=== PATIENT | female | born 1945 | race Caucasian/White ===

== ENCOUNTER 2019-12-05 08:42 | Outpatient (CLI) | payer MEDICARE, SELFPAY ==
--- NOTE | 2019-12-05 08:57 | CT_ITS ---
WS: [id number] CT CHEST WITH INTRAVENOUS CONTRAST HISTORY: NODULE OF LOWER LOBE OF RIGHT LUNG TECHNIQUE: Contiguous 5 mm axial imaging performed on the thorax. Coronal and sagittal reformats are submitted. All CT scans at [facility] use at least one of these dose optimization techniq ues: automated exposure control; mA and/or kV adjustment per patient size (includes targeted exams wh ere dose is matched to clinical indication); or iterative reconstruction. CONTRAST: Omnipaque 300; 95 mL IV. DLP: 796.82 mGycm COMPARISON: 05/31/2019 Lungs and central airway: No interval change in the multiple, noncalcified and subcentimeter nodules in the lower lung jerez. 7 mm nodule in the RIGHT middle lobe. Largest nodule in the RIGHT lower lob e is 7 mm also. 4 mm nodule LEFT lower lobe. These nodules remain stable with no increase in size. No pneumonia. Pleura: Normal. No pleural effusion. Heart and pericardium: Slight enlargement of the heart chambers. No pericardial effusion. Mediastinum and gael: Numerous mediastinal and hilar lymph nodes. Majority of the lymph nodes are sub centimeter and have normal fatty gael. Largest lymph node measures 11 mm at the RIGHT hilum. No progr ession in number or size of the lymph nodes. Vessels: Moderate enlargement the pulmonary artery measuring 3.2 cm transverse diameter of the trunk. Very mild atherosclerosis aorta. Mild atherosclerosis coronary arteries. Chest wall and lower neck: No soft tissue masses. Upper abdomen: Negative. Osseous structures: Mild increase in thoracic kyphosis. Moderate degenerative disc space narrowing an d desiccation at T7-8. No fractures. No destructive bone lesions. CT/CT chest w con* [id number] IMPRESSION: 1. Bilateral RIGHT middle and lower lobe subcentimeter pulmonary nodules are r eidentified with no progression since 05/31/2019. Recommend [address] fo llow-up document continued stability. 2. Mild cardiomegaly. 3. Pulmonary hypertension. 4. Mild atherosclerosis aorta and [place] coronary arteries. 5. Stable mediastinal and hilar lymph nodes.
[2019-12-05 09:21] LABS: Blood Urea Nitrogen 16 mg/dL (8-23)
[2019-12-05] MEDS: iohexol 300 mg/mL 100 mL Btl IV (09:28)
== END 2019-12-05 08:43 | disposition home or self-care (01) ==
PROVIDERS: Radiology Diagnostic Radiology; Family Provider Family Medicine; PCP Family Medicine; Visit Provider Family Medicine
DX: R91.1 Solitary pulmonary nodule (principal); I51.7 Cardiomegaly; I27.20 Pulmonary hypertension, unspecified; I25.10 Atherosclerotic heart disease of native coronary artery without angina pectoris; I70.0 Atherosclerosis of aorta
CPT/HCPCS: 71260; 82565; 84520; Q9967

== ENCOUNTER 2021-04-28 10:47 | Outpatient (CLI) | payer BC, SELFPAY ==
--- NOTE | 2021-04-28 10:56 | XR_ITS ---
WS: [id number] SCREENING DEXA SCAN [employer] CLINICAL INFORMATION: POST MENOPAUSAL COMPARISON: None. FINDINGS: The L1-L4 bone mineral density measures 0.976 g/cm2. This corresponds to a T score score of -1.7 and Z score of -0.3. Left femoral neck bone mineral density measures 1.016 g/cm2. This corresponds to a T score of 0.1 and Z score of 1.6. Right femoral neck bone mineral density measures 1.002 g/cm2. This corresponds to a T score 0.0of and Z score of 1.5. Mean femoral neck bone mineral density measures 1.009 g/cm2. This corresponds to a T score of 0.0 and Z score of 1.6. XR/XR DEXA axial skeleton* [id number] IMPRESSION: Osteopenia lumbar spine. Normal bone mineralization femoral necks. Patient's FRAX calculated 10 year probability for major osteoporotic fracture i s 19.4 % and osteoporotic hip fracture is 4.5%.
== END 2021-04-28 10:48 | disposition home or self-care (01) ==
PROVIDERS: PCP Family Medicine; Visit Provider Physician Assistant
DX: Z78.0 Asymptomatic menopausal state (principal); M85.88 Other specified disorders of bone density and structure, other site
CPT/HCPCS: 77080

== ENCOUNTER → 2022-06-06 10:33 | Outpatient (BNVA) | payer BC, SELFPAY | PROVIDERS: PCP Family Medicine; Referring Provider Family Medicine; Visit Provider Student in an Organized Health Care Education/Training Program | DX: M12.811 Other specific arthropathies, not elsewhere classified, right shoulder (principal) | CPT/HCPCS: 73030 ==

== ENCOUNTER 2022-06-15 06:00 | Outpatient (RCR) | payer BC, SELFPAY | END 2022-06-29 23:59 | disposition home or self-care (01) | LOC: SPT 06:00 | PROVIDERS: PCP Family Medicine; Visit Provider Student in an Organized Health Care Education/Training Program | DX: M25.511 Pain in right shoulder (principal); M12.811 Other specific arthropathies, not elsewhere classified, right shoulder | CPT/HCPCS: 97110; 97161 ==

== ENCOUNTER 2022-06-30 06:00 | Outpatient (RCR) | payer BC, SELFPAY | END 2022-07-30 23:59 | disposition home or self-care (01) | LOC: SPT 06:00 | PROVIDERS: PCP Family Medicine; Visit Provider Student in an Organized Health Care Education/Training Program | DX: M25.511 Pain in right shoulder (principal) | CPT/HCPCS: 97110 ==

== ENCOUNTER 2023-07-09 14:43 | Emergency (ER) | payer MEDICARE, SELFPAY ==
[2023-07-09 14:51] VITALS: BP 155/73; PULSE 68; RESP 16; TEMP 36.4; O2SAT 95; BMI 30.9
[2023-07-09 15:11] VITALS: BP 172/79; PULSE 66; RESP 14; O2SAT 96
--- NOTE | 2023-07-09 15:18 | CTR_ITS ---
PROCEDURE INFORMATION: Exam: CT Head Without Contrast Exam date and time: 07/09/2023 4:10 PM Age: 77 years old Clinical indication: Weakness, extremity; Bilateral; Additional info: Syncope TECHNIQUE: Imaging protocol: Computed tomography of the head without contrast. Sagittal and coronal reformatted images were created and reviewed. Radiation optimization: All CT scans at this facility use at least one of these dose optimization techniques: automated exposure control; mA and/or kV adjustment per patient size (includes targeted exams where dose is matched to clinical indication); or iterative reconstruction. REPORTING DATA: Count of CT and Cardiac NM exams in prior 12 months: This patient has received 0 known CTs and 0 known cardiac nuclear medicine studies in the 12 months prior to the current study. COMPARISON: No relevant prior studies available. RADIATION DOSE METRICS: Total DLP (mGy-cm): 1030.78 FINDINGS: Brain: No acute intracranial hemorrhage. No acute infarct. No intra-axial or extra-axial masses. Horn-white matter differentiation is preserved. No cerebral edema. No extra-axial fluid collections. No midline shift. No evidence for Chiari 1 malformation. Mild atrophy of the brain parenchyma. Mildly decreased attenuation in the deep white matter, consistent with mild chronic microangiopathic change. Cerebral ventricles: No hydrocephalus. Paranasal sinuses: Visualized paranasal sinuses are clear. Mastoid air cells: Visualized mastoid air cells are clear. Orbital cavities: No acute abnormality in the visualized orbits. Bones/joints: No acute fracture. Soft tissues: The extracranial soft tissues are unremarkable. Vasculature: Atherosclerotic changes in the visualized arteries. CT/CT head wo con* [id number] IMPRESSION: 1. No acute abnormality of the brain. 2. Mild atrophy of the brain parenchyma. 3. Mild chronic white matter microangiopathic change. 4. Incidental/nonacute findings are listed in the report.
[2023-07-09 15:30] VITALS: BP 135/72; PULSE 60; RESP 16; O2SAT 95
[2023-07-09 16:00] VITALS: BP 152/81; PULSE 60; RESP 16; O2SAT 94
[2023-07-09 16:00] LABS: Add Urine Microscopic? NO; Charge for UA Resulting for Rev
[2023-07-09 16:08] LABS: Basophils % 0.3 %; Eosinophils # 0.1 10^3/uL (0.0-0.8); Hematocrit 38.5 % (36-47); Lymphocytes # 1.6 10^3/uL (0.8-4.8); Lymphocytes % 25.6 %; Mean Corpuscular HGB Conc 33.5 g/dL (30-55); Mean Corpuscular Hemoglobin 31.5 pg (27-33); Mean Corpuscular Volume 93.9 fl (85-98); Mean Platelet Volume 10.1 fL (7.4-10.4); Monocytes # 0.7 10^3/uL (0.2-0.9); Monocytes % 10.8 %; Neutrophils # 3.81 10^3/uL (1.8-7.7); Neutrophils % 62.1 %; Nucleated Red Blood Cells % 0 %; Platelet Count 224 10^3/cmm (157-399); White Blood Count 6.13 10^3/uL (3.29-11.43)
[2023-07-09 16:17] LABS: Bilirubin Urine Neg (Negative); Blood Urine Neg (Negative); Glucose Urine UA Norm (Normal); Ketones Urine Negative (Negative); Leukocyte Esterase Urine Negative (Negative); Nitrate Urine Negative (Negative); Protein Urine Neg (Negative); Urine Appearance Clear (CLEAR); Urine Color Yellow (Yellow); Urobilinogen Urine Norm (Negative); pH Urine 6 (5-7)
[2023-07-09 16:25] LABS: Alanine Aminotransferase 11 U/L (0-33); Albumin Level 4.2 g/dL (3.5-5.2); Alkaline Phosphatase 55 U/L (35-105); Anion Gap 14.5 (5-19); Aspartate Amino Transferase 12 U/L (0-32); Blood Urea Nitrogen 18 mg/dL (8-23); Calcium 9.2 mg/dL (8.5-10.5); Carbon Dioxide 28 mmol/L (22-29); Chloride 102 mmol/L (98-107); Globulin 2.8 g/dL (1.3-4.6); Glucose 168 mg/dL (65-115); Magnesium 1.8 mg/dL (1.7-2.3); Osmolality Calculated 298 mOsm/kg (285-295); Potassium 3.5 mmol/L (3.5-5.1); Sodium 141 mmol/L (136-145); Total Bilirubin 0.2 mg/dL (0.15-1.2)
--- NOTE | 2023-07-09 16:46 | ED_ITS ---
HPI - Weakness 2 General: Chief complaint: Weakness Stated complaint: weakness Time Seen by Provider: 07/09/23 15:08 History of Present Illness: 77-year-old female presents emergency de partment with complaints of having a near episode of passing out. She states that it occurred earlier today while she was eating lunch. She states she felt like her arms went limp and that she stayed that way for several minutes and was unable to stand up. She states that after 2 to 3 minutes she returned back to normal was able to ambulate and walk. She states that she had an episode like this yesterday morning at breakfast where she had to yell for her to come stabilize her she states that she felt like her muscles were twitching and jerking and having muscle spasms in her legs at that time. She states she has never had anything like this in the past. She states she is generally healthy and has never had any seizure type activities. She states that she was able to remember the entire incident and that she was able to talk to her while it was occurring. She states that she has not seen her primary care provider for this as the first time it ever happened was yesterday. Review of Systems 2 General: Reports: 10 or more systems reviewed and unremarkable except in HPI and below Card: Reports: pre-syncope Musc: Reports: muscle weakness [facility] ED 2 PFSH: Medical History Rotator cuff arthropathy of right shoulder Physical Exam 2 Narrative: EXAM NARRATIVE: Constitutional: the patient appears well nourished and with normal development. Vital signs reviewed as documented. HENMT: Normocephalic, atraumatic. External ears with normal appearance without drainage. Nose without drainage, normal appearance. Mucus membranes moist. Neck is supple, No jugular venous distension, trachea is midline, no appreciable carotid bruits. No lymphadenopathy. No meningeal signs. Flexion, extension and lateral rotation is without pain. Eyes: Pupils are equal, round, reactive to light and accommodation. No scleral icterus. Extra-ocular movement are intact. Thorax is symmetrical and with equal rise and fall with respirations. Resp: Lungs are clear to auscultation. No wheezes, rales, crackles or ronchi at present. Cardio: Regular rate and rhythm. Positive S1, S2. No appreciable murmurs, rubs or gallops. GI: Abdominal exam reveals normal bowel sounds to all quadrants. No organomegaly. No obvious palpable masses noted. No hepatomegally appreciated. Soft, nontender to palpation. Extremity: Extremities are non-edematous and both femoral and pedal pulses are 2+ and equal bilaterally. Moves all extremities well, sensation in all extremities. Neuro: Alert and oriented x4, person, place, time and situation. Cranial nerves II through XII are grossly intact, there is no focal neurological deficits that I can appreciate at present. Motor strength in the upper and lower extremities are equal and bilateral 5/5. Psych: Cooperative, calm, normal thought process, appropriate judgment. Skin: No lesions, rashes. No gross abnormalities noted. Back: Symmetrical, no obvious deformity, No CVA tenderness Course 2 Vital Signs: Vital signs: Vital Signs Temperature 97.5 F L 07/09/23 14:51 Pulse Rate 61 07/09/23 17:00 Respiratory Rate 18 07/09/23 17:00 Blood Pressure 149/77 07/09/23 17:00 Pulse Oximetry 95 07/09/23 17:00 Oxygen Delivery Me thod Room Air 07/09/23 14:51 MDM - Weakness Medical Decision Making Physical exam completed and documented, I will obtain a CT scan of the patient's head as well as CBC and CMP to evaluate for her concerns of near syncope. The patient has returned to complete normalcy and does not feel like she is dizzy or lightheaded or having any sort of muscle spasms at present. Medical Records I reviewed the patient's medical records. Lab Data I reviewed the patient's lab results. 07/09/23 15:47 07/09/23 15:[address] 07/09/23 15:18 IMPRESSION: 1. No acute abnormality of the brain. 2. Mild atrophy of the brain parenchyma. 3. Mild chronic white matter microangiopathic change. 4. Incidental/nonacute findings are listed in the report. Laboratory Results WBC 6.13 10^3/uL (3.29-11.43) 07/09/23 15:47 RBC 4.10 10^6/uL (3.85-5.65) 07/09/23 15:47 Hgb 12.90 g/dL (11.27-16.99) 07/09/23 15:47 Hct 38.5 % (36-47) 07/09/23 15:47 MCV 93.9 fl (85-98) 07/09/23 15:47 MCH 31.5 pg (27-33) 07/09/23 15:47 MCHC 33.5 g/dL (30-55) 07/09/23 15:47 RDW 12.0 % (12.1-15.1) L 07/09/23 15:47 Plt Count 224 10^3/cmm (157-399) 07/09/23 15:47 MPV 10.1 fL (7.4-10.4) 07/09/23 15:47 Neut % (Auto) 62.1 % 07/09/23 15:47 Lymph % (Auto) 25.6 % 07/09/23 15:47 [place] % (Auto) 10.8 % 07/09/23 15:47 Eos % (Auto) 1.0 % 07/09/23 15:47 Baso % (Auto) 0.3 % 07/09/23 15:47 Neut # (Auto) 3.81 10^3/uL (1.8-7.7) 07/09/23 15:47 Lymph # (Auto) 1.6 10^3/uL (0.8-4.8) 07/09/23 15:47 [place] # (Auto) 0.7 10^3/uL (0.2-0.9) 07/09/23 15:47 Eos # (Auto) 0.1 10^3/uL (0.0-0.8) 07/09/23 15:47 Baso # (Auto) 0.0 10^3/uL (0.0-0.1) 07/09/23 15:47 Nucleated RBC % (auto) 0 % 07/09/23 15:47 Nucleated RBCs # 0.0 /100WBC 07/09/23 15:47 Sodium 141 mmol/L (136-145) 07/09/23 15:47 Potassium 3.5 mmol/L (3.5-5.1) 07/09/23 15:47 Chloride 102 mmol/L (98-107) 07/09/23 15:47 Carbon Dioxide 28 mmol/L (22-29) 07/09/23 15:47 Anion Gap 14.5 (5-19) 07/09/23 15:47 BUN 18 mg/dL (8-23) 07/09/23 15:47 Creatinine 0.7 mg/dL (0.5-0.9) 07/09/23 15:47 GFR Calculation Not Reportable 07/09/23 15:47 Glucose 168 mg/dL (65-115) H 07/09/23 15:47 Calculated Osmolality 298 mOsm/kg (285-295) H 07/09/23 15:47 Calcium 9.2 mg/dL (8.5-10.5) 07/09/23 15:47 Magnesium 1.8 mg/dL (1.7-2.3) 07/09/23 15:47 Total Bilirubin 0.2 mg/dL (0.15-1.2) 07/09/23 15:47 AST 12 U/L (0-32) 07/09/23 15:47 ALT 11 U/L (0-33) 07/09/23 15:47 Alkaline Phosphatase 55 U/L (35-105) 07/09/23 15:47 Total Protein 7.0 g/dL (6.6-8.7) 07/09/23 15:47 Albumin 4.2 g/dL (3.5-5.2) 07/09/23 15:47 Globulin 2.8 g/dL (1.3-4.6) 07/09/23 15:47 Urine Color Yellow (Yellow) 07/09/23 15:47 Urine Appearance Clear (CLEAR) 07/09/23 15:47 Urine pH 6 (5-7) 07/09/23 15:47 Ur Specific [place] 1.010 (1.005-1.030) 07/09/23 15:47 Urine Protein Neg (Negative) 07/09/23 15:47 Urine Glucose (UA) Norm (Normal) 07/09/23 15:47 Urine Ketones Negative (Negative) 07/09/23 15:47 Urine Blood Neg (Negative) 07/09/23 15:47 Urine Nitrate Negative (Negative) 07/09/23 15:47 Urine Bilirubin Neg (Negative) 07/09/23 15:47 Urine Urobilinogen Norm mg/dL (Negative) 07/09/23 15:47 Ur Leukocyte Esterase Negative (Negative) 07/09/23 15:47 All radiology interpretation(s) finalized by discharge Discharge Plan Discharge Patient Disposition: Home Clinical Impression: Near syncope Condition: Stable Prescriptions: No Action amlodipine 10 mg tablet 10 mg PO DAILY levothyroxine 75 mcg capsule 75 mcg PO DAILY montelukast 10 mg tablet 10 mg PO DAILY hydrochlorothiazide 25 mg tablet 25 mg PO DAILY simvastatin 80 mg tablet 80 mg PO DAILY irbesartan 150 mg tablet 150 mg PO DAILY metformin 500 mg tablet extended release 24 hr 50 mg PO BID Discharge Orders: Discharge ED (Routine); Ordered 07/09/23 Ordered By: Tyshawn Hinton Referrals: Luca Sanon MD [Primary Care Provider] - Discharge Diet: Advance as tolerated Discharge Activity: Resume usual activity Patient Instructions: Opioid Safety, Pain Management Activity Restrictions/Additional Instructions: Activity Restrictions/Additional Instructions: Thank you for choosing [facility] for your healthcare needs today. Please realize that you were seen in the Emergency Department and that we are providing you with an emergency medical screening exam and this may not be a complete and all inclusive of all the testing and or medical work-up that you may need to determine your ailment or severity of your illness. It is very important that you follow-up as instructed with your Primary care provider or Specialist for additional evaluation and to discuss your medical treatment plan. You may return to the Emergency Department should you have concerns or if your condition changes or worsens in any way. Coding Level of Care Code ED Information Technology Coordinator for Gianni Jj
[2023-07-09 17:00] VITALS: BP 149/77; PULSE 61; RESP 18; O2SAT 95
== END 2023-07-09 18:09 | disposition home or self-care (01) ==
PROVIDERS: Emergency Provider Internal Medicine; PCP Family Medicine
DX: R55 Syncope and collapse (principal)
CPT/HCPCS: 70450; 80053; 81003; 83735; 85025; 99284

== ENCOUNTER 2023-07-16 11:30 | Observation (INO) | payer MEDICARE, SELFPAY ==
[2023-07-16] VITALS (12 sets, daily range): BP systolic 119–164; BP diastolic 2–94; PULSE 60–67; RESP 13–20; TEMP 36.5–36.7; O2SAT 90–97; BMI 28.7
--- NOTE | 2023-07-16 11:40 | XRR_ITS ---
PROCEDURE INFORMATION: Exam: XR Chest Exam date and time: 07/16/2023 12:02 PM Age: 77 years old Clinical indication: Other: Dizzy TECHNIQUE: Imaging protocol: Radiologic exam of the chest. Views: 1 view. COMPARISON: CT chest w con* [id number] 12/05/2019 9:25 AM FINDINGS: Lungs: Unremarkable. No consolidation. Pleural spaces: Unremarkable. No pleural effusion. No pneumothorax. Heart/Mediastinum: Unremarkable. No cardiomegaly. Bones/joints: Unremarkable. XR/XR chest 1V portable [id number] IMPRESSION: No acute findings.
--- NOTE | 2023-07-16 11:40 | CTR_ITS ---
PROCEDURE INFORMATION: Exam: CT Head Without Contrast Exam date and time: 07/16/2023 12:11 PM Age: 77 years old Clinical indication: Dizziness; Additional info: Dizzy TECHNIQUE: Imaging protocol: Computed tomography of the head without contrast. Radiation optimization: All CT scans at this facility use at least one of these dose optimization techniques: automated exposure control; mA and/or kV adjustment per patient size (includes targeted exams where dose is matched to clinical indication); or iterative reconstruction. REPORTING DATA: Count of CT and Cardiac NM exams in prior 12 months: This patient has received [address] and 0 known cardiac nuclear medicine studies in the 12 months prior to the current study. COMPARISON: CT head wo con* [id number] 07/09/2023 4:10 PM RADIATION DOSE METRICS: Total DLP (mGy-cm): 1001.68 FINDINGS: Brain: Mild parenchymal volume loss. Vague rounded hypodensity anterior superior left cerebellar hemisphere (series 4, image 13) measuring 7 mm is seen. There is surrounding hypodensity that is ill-defined. The appearance has developed since brain CT from 07/09/2023. There is no acute infarct, hemorrhage or extra-axial fluid collection. Cerebral ventricles: No ventriculomegaly. Paranasal sinuses: Visualized sinuses are unremarkable. No fluid levels. Mastoid air cells: Visualized mastoid air cells are well aerated. Bones/joints: Unremarkable. No acute fracture. Soft tissues: Unremarkable. CT/CT head wo con* [id number] IMPRESSION: There is a new finding of defined 7 mm rounded hypodensity anterior superior left cerebellar hemisphere with surrounding hypodensity but is ill-defined. Differential considerations include a developing infectious process, atypical appearance of ischemic lesion. Neoplasm is felt to be unlikely given the exchange consultant a 7 day period. Would recommend further evaluation with MRI pre and postcontrast.
--- NOTE | 2023-07-16 11:45 | ED_ITS ---
HPI - Dizziness 2 General: Chief Complaint: Dizziness Stated Complaint: dizzy Time Seen by Provider: 07/16/23 11:33 Source: patient and EMS Mode of arrival: EMS Limitations: no limitations History of Present Illness: HPI Narrative: 77-year-old female states she has had di zziness over the last week. States it is mainly with standing and movement at rest that improved she was seen here a week ago had normal workup including normal head CT states that her symptoms have continued denies any headache denies any chest pain. Associated symptoms: Denies chest pain, chills, headache(s), nausea or vomiting Review of Systems 2 Const: Denies: fever(s), chills, body aches or change in appetite ENMT: Denies: throat pain or dental pain Card: Denies: chest pain Resp: Denies: dyspnea GI: Denies: abdominal pain, nausea, vomiting or diarrhea Musc: Denies: neck pain or back pain Skin/Breast: Denies: rash Neuro: Reports: dizziness; Denies: headache(s) PFSH ED 2 PFSH: Medical History Rotator cuff arthropathy of right shoulder Physical Exam 2 Const: COMMON NORMALS: no acute distress, patient oriented x3 and healthy appearing HENMT: COMMON NORMALS: normocephalic and atraumatic HEAD & SCALP: n ormocephalic and atraumatic Neck/C-Spine: COMMON NORMALS: full ROM and supple Chest: COMMONS NORMALS: normal inspection of the chest and normal palpation of entire chest wall Resp: COMMON NORMALS: normal respiratory effort, No retractions, No use of accessory muscles and clear to auscultation bilaterally AUSCULTATION: clear to auscultation bilaterally Cardio: COMMON NORMALS: regular rate, regular rhythm and No murmurs present (Cardio) RATE: regular rate RHYTHM: regular rhythm Extremity: COMMON NORMALS: normal to inspection and full ROM Neuro: COMMON NORMALS: patient oriented x3, moves all extremities and no focal motor deficits CRANIAL NERVES: Yes CN normal except as noted MOTOR EXAM: 5 /5 motor strength present throughout Psych: COMMON NORMALS: mental status grossly normal, Normal thought process present and cooperative THOUGHT PROCESS: Normal thought process present Skin: COMMON NORMALS: no rashes or lesions noted and no wounds GENERAL SKIN EXAM: no rashes or lesions noted Course 2 Vital Signs: Vital signs: Vital Signs Temperature 97.7 F 07/16/23 11:32 Pulse Rate 62 07/16/23 12:34 Respiratory Rate 20 H 07/16/23 12:18 Blood Pressure 119/2 07/16/23 12:34 Pulse Oximetry 94 07/16/23 12:34 Oxygen Delivery Me thod Room Air 07/16/23 12:34 MDM - Dizziness Medical Decision Making Patient presents here with dizziness CT shows a area of possible posterior stroke. Patient given aspirin here I spoke to the hospitalist will admit for an MRI Medical Records I reviewed the patient's medical records. Lab Data I reviewed the patient's lab results. 07/16/23 11:57 07/16/23 11:57 Radiology Impressions Chest X-Ray 07/16/23 11:40 IMPRESSION: No acute findings. Head CT 07/16/23 11:40 IMPRESSION: There is a new finding of defined 7 mm rounded hypodensity anterior superior left cerebellar hemisphere with surrounding hypodensity but is ill-defined. Differential considerations include a developing infectious process, atypical appearance of ischemic lesion. Neoplasm is felt to be unlikely given the car changer a 7 day period. Would recommend further evaluation with MRI pre and postcontrast. Laboratory Results WBC 6.62 10^3/uL (3.29-11.43) 07/16/23 11:57 RBC 4.56 10^6/uL (3.85-5.65) 07/16/23 11:57 Hgb 14.10 g/dL (11.27-16.99) 07/16/23 11:57 Hct 41.7 % (36-47) 07/16/23 11:57 MCV 91.4 fl (85-98) 07/16/23 11:57 MCH 30.9 pg (27-33) 07/16/23 11:57 MCHC 33.8 g/dL (30-55) 07/16/23 11:57 RDW 11.8 % (12.1-15.1) L 07/16/23 11:57 Plt Count 231 10^3/cmm (157-399) 07/16/23 11:57 MPV 10.3 fL (7.4-10.4) 07/16/23 11:57 Neut % (Auto) 62.5 % 07/16/23 11:57 Lymph % (Auto) 25.7 % 07/16/23 11:57 [place] % (Auto) 9.8 % 07/16/23 11:57 Eos % (Auto) 1.2 % 07/16/23 11:57 Baso % (Auto) 0.5 % 07/16/23 11:57 Neut # (Auto) 4.14 10^3/uL (1.8-7.7) 07/16/23 11:57 Lymph # (Auto) 1.7 10^3/uL (0.8-4.8) 07/16/23 11:57 [place] # (Auto) 0.7 10^3/uL (0.2-0.9) 07/16/23 11:57 Eos # (Auto) 0.1 10^3/uL (0.0-0.8) 07/16/23 11:57 Baso # (Auto) 0.0 10^3/uL (0.0-0.1) 07/16/23 11:57 Nucleated RBC % (auto) 0 % 07/16/23 11:57 Nucleated RBCs # 0.0 /100WBC 07/16/23 11:57 Sodium 140 mmol/L (136-145) 07/16/23 11:57 Potassium 3.5 mmol/L (3.5-5.1) 07/16/23 11:57 Chloride 100 mmol/L (98-107) 07/16/23 11:57 Carbon Dioxide 31 mmol/L (22-29) H 07/16/23 11:57 Anion Gap 12.5 (5-19) 07/16/23 11:57 BUN 15 mg/dL (8-23) 07/16/23 11:57 Creatinine 0.6 mg/dL (0.5-0.9) 07/16/23 11:57 GFR Calculation Not Reportable 07/16/23 11:57 Glucose 170 mg/dL (65-115) H 07/16/23 11:57 Calculated Osmolality 295 mOsm/kg (285-295) 07/16/23 11:57 Calcium 9.8 mg/dL (8.5-10.5) 07/16/23 11:57 Total Bilirubin 0.2 mg/dL (0.15-1.2) 07/16/23 11:57 AST 15 U/L (0-32) 07/16/23 11:57 ALT 13 U/L (0-33) 07/16/23 11:57 Alkaline Phosphatase 59 U/L (35-105) 07/16/23 11:57 Total Protein 7.2 g/dL (6.6-8.7) 07/16/23 11:57 Albumin 4.6 g/dL (3.5-5.2) 07/16/23 11:57 Globulin 2.6 g/dL (1.3-4.6) 07/16/23 11:57 TSH 4.79 uIU/mL (0.27-4.20) H 07/16/23 11:57 All radiology interpretation(s) finalized by discharge EKG Data EKG 1: I personally reviewed and interpreted this EKG as follows: EKG interpretation date: 07/16/23 EKG interpretation time: 12:08 Interpretation: sinus toby hr [address] or t wave abnormalities qrs 97 qtc 388 Discharge Plan Discharge Patient Disposition: Admitted As Inpatient Clinical Impression: Posterior circulation stroke Condition: Stable Coding Level of Care Code ED Custodial Supervisor for Gianni Jj
[2023-07-16 12:08] LABS: Basophils % 0.5 %; Eosinophils # 0.1 10^3/uL (0.0-0.8); Eosinophils % 1.2 %; Hematocrit 41.7 % (36-47); Lymphocytes # 1.7 10^3/uL (0.8-4.8); Lymphocytes % 25.7 %; Mean Corpuscular HGB Conc 33.8 g/dL (30-55); Mean Corpuscular Hemoglobin 30.9 pg (27-33); Mean Corpuscular Volume 91.4 fl (85-98); Mean Platelet Volume 10.3 fL (7.4-10.4); Monocytes # 0.7 10^3/uL (0.2-0.9); Monocytes % 9.8 %; Neutrophils # 4.14 10^3/uL (1.8-7.7); Neutrophils % 62.5 %; Nucleated Red Blood Cells % 0 %; Platelet Count 231 10^3/cmm (157-399); Red Blood Count 4.56 10^6/uL (3.85-5.65); Red Cell Distribution Width 11.8 % (12.1-15.1); White Blood Count 6.62 10^3/uL (3.29-11.43)
--- NOTE | 2023-07-16 12:08 | ECG_ITS ---
[facility] Test Date: 2023-07-16 Pat Name: Francy Mcmullen Department: Room: Gender: Female Hammer Smith: : 1945 Requested By: Jesse Rainey Order Number: [id number] Brayan MD: Kirby Moreno M.D. Measurements Intervals [place] Rate: 56 P: 69 MT: 216 QRS: 35 QRSD: 97 T: 44 QT: 397 QTc: 385 Interpretive Statements SINUS BRADYCARDIA WITH FIRST DEGREE AV BLOCK No previous ECG available for comparison Electronically Signed On 07-16-2023 19:45:20 CABINETMAKER APPRENTICE by Kirby Moreno M.D. [email or web address]
[2023-07-16 12:27] LABS: Alanine Aminotransferase 13 U/L (0-33); Albumin Level 4.6 g/dL (3.5-5.2); Alkaline Phosphatase 59 U/L (35-105); Aspartate Amino Transferase 15 U/L (0-32); Blood Urea Nitrogen 15 mg/dL (8-23); Calcium 9.8 mg/dL (8.5-10.5); Carbon Dioxide 31 mmol/L (22-29); Chloride 100 mmol/L (98-107); Globulin 2.6 g/dL (1.3-4.6); Glucose 170 mg/dL (65-115); Osmolality Calculated 295 mOsm/kg (285-295); Sodium 140 mmol/L (136-145); Thyroid Stimulating Hormone 4.79 uIU/mL (0.27-4.20); Total Bilirubin 0.2 mg/dL (0.15-1.2); Total Protein 7.2 g/dL (6.6-8.7)
[2023-07-16 12:31] LABS: Anion Gap 12.5 (5-19); Potassium 3.5 mmol/L (3.5-5.1)
[2023-07-16] MEDS: meclizine 25 mg tablet PO (12:57)
[2023-07-16] MEDS: aspirin 81 mg Chew Tablet 324 MG PO (12:57)
--- NOTE | 2023-07-16 16:52 | USCV_ITS ---
Francy Mcmullen Age: 77 Gender: F : 1945 Exam Date: 07/16/2023 18:36 Ordering Phys: Stella Patel MD Technologist: Shaw Silva [place]am Location[place] [facility] [place]ication: stroke BP: 149 / 78 HR: 59 Rhythm: Sinus Technical Quality: Adequate MEASUREMENTS (Male / Female) Normal Values 2D ECHO LVOT Diameter 2.0 cm LV Ejection Fraction MOD 2C 65.5 % LV Ejection Fraction 2C AL 65.0 % LA Diameter 3.6 cm LA Width 3.8 cm LA Height 4.7 cm RA Width 3.6 cm RA Height 3.9 cm Aorta at Sinotubular Diameter 2.1 cm IVC Diameter 1.7 cm M-MODE Aortic Annulus Diameter 2.8 cm LA Ao Ratio MM 1.4 MV E Point Septal Separation 0.5 cm DOPPLER AV Peak Velocity 204.3 cm/s LVOT Peak Velocity 115.0 cm/s AV Area Cont Eq vti 2.0 cm squared AV Area Cont Eq pk 1.8 cm squared MV Peak Velocity 139.0 cm/s MV Area PHT 3.1 cm squared Mitral E to A Ratio 0.5 MV E' Velocity 25.5 cm/s Mitral E to MV E' Ratio 8.6 Mitral E to LV E' Lateral Ratio 9.3 Mitral E to LV E' Septal Ratio 8.1 TR Peak Velocity 243.0 cm/s TR Peak Gradient 23.6 mmHg TR Mean Velocity 176.4 cm/s TR Mean Gradient 15.1 mmHg TR Velocity Time Integral 54.7 cm Right Atrial Pressure 3.0 mmHg Pulmonary Artery Systolic Pressu 26.6 mmHg PV Peak Velocity 101.3 cm/s RV Acceleration Time 0.1 s RV Ejection Time 0.3 s RV AcT/ET 0.3 FINDINGS Left Ventricle Normal left ventricular size and systolic function, EF 66 %. No regional wall motion abnormalities. Mild left ventricular hypertrophy. Grade I/IV diastolic dysfunction (abnormal relaxation filling pattern), normal to mildly elevated filling pressures. Right Ventricle The right ventricle is normal in size and function. Right Atrium The right atrium is normal in size. Left Atrium The left atrium is normal in size. Mitral Valve Mild mitral annular calcification. Aortic Valve Thickened aortic valve. Tricuspid Valve Trace tricuspid valve regurgitation. Estimated pulmonary artery peak systolic pressure 27 mmHg Pulmonic Valve No gross abnormalities noted Pericardium Normal pericardium without effusion. Aorta Normal ascending aorta dimension. IVC The inferior vena cava appears normal. CONCLUSIONS Normal left ventricular size and systolic function, EF 66 %. No regional wall motion abnormalities. Mild left ventricular hypertrophy. Grade I/IV diastolic dysfunction (abnormal relaxation filling pattern), normal to mildly elevated filling pressures. Thickened aortic valve. Mild mitral annular calcification. Trace tricuspid valve regurgitation. Estimated pulmonary artery peak systolic pressure 27 mmHg. There is no pericardial effusion. There are no intracardiac masses. No similar previous studies are available for comparison Dr Kirby Moreno MD [facility] (Electronically Signed) Final Date: 16 July 2023 19:34 S
--- NOTE | 2023-07-16 16:57 | MRR_ITS ---
PROCEDURE INFORMATION: Exam: MR Head Without Contrast Exam date and time: 07/16/2023 5:32 PM Age: 77 years old Clinical indication: Dizziness and malaise or fatigue; Additional info: Posterior circulation stroke TECHNIQUE: Imaging protocol: Magnetic resonance imaging of the head without contrast. COMPARISON: CT head wo con* [id number] 07/16/2023 12:11 PM FINDINGS: Brain: Focal round area of restricted diffusion with FLAIR hyperintensity in left cerebellar hemisphere anteromedially corresponding to the lesion seen on CT. Mild bilateral periventricular and subcortical white matter T2 hyperintensities are present compatible with small-vessel ischemic disease. No mass lesion. No hemorrhage. No extra-axial fluid collection. Cerebral ventricles: Normal. No ventriculomegaly. Bones/joints: Unremarkable. Paranasal sinuses: Normal as visualized. No acute sinusitis. Mastoid air cells: Normal as visualized. No mastoid effusion. Orbital cavities: Unremarkable. Soft tissues: Unremarkable. MR/MR head wo con* [id number] IMPRESSION: Focal round area of restricted diffusion with FLAIR hyperintensity in left cerebellar hemisphere anteromedially corresponding to the lesion seen on CT. This could represent an acute small vessel infarct without hemorrhage. As mentioned on the original CT report contrast would also be useful to exclude possibility of other lesions that may produce restricted diffusion such as infection. Alternatively, follow-up exam in 7 days could be obtained.
--- NOTE | 2023-07-16 16:58 | PM.HP ---
Providers/Chief Complaint Admitting Physician: Stella Patel MD Primary Care Provider: Luca Sanon MD Chief Complaint: dizzy History of Present Illness Francy Mcmullen is a 77 year old female with a past medical history of hypertension, diabetes who presented to the hospital with chief complaints of feeling unsteady for a week. Patient states her symptoms started last weekend when she was in her kitchen and suddenly she felt like the floor was tilted. This feeling passed, however next day while she was out dining at a restaurant she suddenly felt her left arm flap. She presented to the emergency room on 07/09/[address] of her head was unremarkable.There were noted to be some chronic white matter microangiopathic changes. She followed up with her primary care provider and was started on low-dose aspirin and simvastatin. She presented to the emergency room today when her symptoms did not resolve. She states that now she has had persistent dizziness. Anytime she gets up to attempt to walk she feels unsteady and as if she will fall to her [address] of the head was performed today and now shows a 7 mm hypodensity in the cerebellum, given her symptoms concern for posterior circulation stroke currently. There are no focal signs on neuroexam, however there was noted nystagmus when examined in the emergency room. Patient does not have any past history of stroke. Review of Systems General: Reports: 10 or more systems reviewed and unremarkable except in HPI and below Const: Denies: fever(s), chills or body aches Eyes: Denies: change in vision, blurry vision or photophobia ENMT: Reports: hoarseness; Denies: throat pain, enlarged tonsils, odynophagia or nasal congestion Card: Denies: chest pain, palpitations, irregular heart rhythm, edema, swelling of feet/ankles, lightheadedness, pre-syncope, dyspnea on exertion or orthopnea Resp: Denies: dyspnea, productive cough, non-productive cough, wheezing, stridor, pain on inspiration, change in phlegm color, hemoptysis or chest congestion GI: Denies: abdominal pain, nausea, vomiting, hematemesis, coffee ground emesis, dysphagia, heartburn, diarrhea, constipation, GI cramping, change in stool character, hematochezia or melena : Denies: flank pain, difficulty voiding, dysuria, urinary frequency, urinary urgency, urinary hesitancy or hematuria Musc: Denies: neck pain, back pain, extremity pain, joint swelling, joint warmth or deformity Neuro: Denies: headache(s), numbness in extremities, weakness in extremities, sensory changes, difficulty walking, frequent falls, dizziness, vertigo, behavioral changes, Slurred speech present or seizure-like activity Psych: Denies: anxiety, depression, suicidal ideation or homicidal ideation Endo: Denies: polyuria, polydipsia, tired all the time, cold intolerance or hot flashes Anibal/Lymph: Denies: easy bruising or easy bleeding Medications/Allergies Home Medications Medication Instructions Recorded Confirmed Last Taken Type amlodipine 10 mg tablet 10 mg PO QAM 07/18/22 07/16/23 07/16/23 08:00 History hydrochlorothiazide 25 mg tablet 25 mg PO QAM 07/18/22 07/16/23 07/16/23 08:00 History montelukast 10 mg tablet 10 mg PO QAM 07/18/22 07/16/23 07/16/23 08:00 History simvastatin 80 mg tablet 80 mg PO QAM 07/18/22 07/16/23 07/16/23 08:00 History irbesartan 150 mg tablet 150 mg PO QAM 07/09/23 07/16/23 07/16/23 08:00 History metformin 500 mg tablet,extended 500 mg PO BID 07/09/23 07/16/23 07/16/23 08:00 History release 24 hr aspirin 81 mg tablet,delayed 81 mg PO QAM 07/16/23 07/16/23 07/16/23 08:00 History release levothyroxine 75 mcg tablet 75 mcg PO QAM 07/16/23 07/16/23 07/16/23 08:00 History Allergies Allergy/AdvReac Type Severity Reaction Status Date / Time No Known Allergies Allergy Verified 07/16/23 12:42 PFSH Acute PFSH: Medical History (Updated 07/16/23 @ 17:02 by Stella Patel MD) Diabetes mellitus Hypertension Rotator cuff arthropathy of right shoulder Vitals/I&O/Wt Last Vital Signs Temp 97.7 F 07/16/23 11:32 Pulse 62 07/16/23 14:17 Resp 20 H 07/16/23 12:18 BP 149/78 07/16/23 14:17 Pulse Ox 93 07/16/23 14:17 O2 Del Method Room Air 07/16/23 15:37 Weight last 48 hrs Weight 71.169 kg Weight 76.657 kg Physical Exam Narrative: General: No acute distress, AO x3 HEENT: PERRLA, pupils bilaterally equal and reactive, pallors not present Chest: Normal vesicular breath sounds, no added sounds, equal good air entry bilaterally CVS: S1-S2 regular, no murmurs, no tachycardia, no gallops, no rubs Abdomen: Soft, nontender, no organomegaly, bowel sounds present Neuro: No focal deficits, no facial deformity, AO x3, power 5/5 in all limbs Data 07/16/23 11:57 07/16/23 11:57 Other data: [employer] [address] [place] [id number] Scan Report Signed Patient: Francy Mcmullen Unit #: [id number] : 1945 Age/Sex: 77 / F ADM Date: 07/16/23 Loc: ER Room/Bed: Attending Dr: Ordering Provider/Ordering MD: Jesse Rainey MD Date of Service: 07/16/23 Procedure(s): CT head wo con* [id number] Accession Number(s): [id number] Report Number: [id number] PROCEDURE INFORMATION: Exam: CT Head Without Contrast Exam date and time: 07/16/2023 12:11 PM Age: 77 years old Clinical indication: Dizziness; Additional info: Dizzy TECHNIQUE: Imaging protocol: Computed tomography of the head without contrast. Radiation optimization: All CT scans at this facility use at least one of these dose optimization techniques: automated exposure control; mA and/or kV adjustment per patient size (includes targeted exams where dose is matched to clinical indication); or iterative reconstruction. REPORTING DATA: Count of CT and Cardiac NM exams in prior 12 months: This patient has received [address] and 0 known cardiac nuclear medicine studies in the 12 months prior to the current study. COMPARISON: CT head wo con* [id number] 07/09/2023 4:10 PM RADIATION DOSE METRICS: Total DLP (mGy-cm): 1001.68 FINDINGS: Brain: Mild parenchymal volume loss. Vague rounded hypodensity anterior superior left cerebellar hemisphere (series 4, image 13) measuring 7 mm is seen. There is surrounding hypodensity that is ill-defined. The appearance has developed since brain CT from 07/09/2023. There is no acute infarct, hemorrhage or extra-axial fluid collection. Cerebral ventricles: No ventriculomegaly. Paranasal sinuses: Visualized sinuses are unremarkable. No fluid levels. Mastoid air cells: Visualized mastoid air cells are well aerated. Bones/joints: Unremarkable. No acute fracture. Soft tissues: Unremarkable. CT/CT head wo con* [id number] IMPRESSION: There is a new finding of defined 7 mm rounded hypodensity anterior superior left cerebellar hemisphere with surrounding hypodensity but is ill-defined. Differential considerations include a developing infectious process, atypical appearance of ischemic lesion. Neoplasm is felt to be unlikely given the policy change clerk a 7 day period. Would recommend further evaluation with MRI pre and postcontrast. CT/CT head wo con* [id number] IMPRESSION: 1. No acute abnormality of the brain. 2. Mild atrophy of the brain parenchyma. 3. Mild chronic white matter microangiopathic change. 4. Incidental/nonacute findings are listed in the report. A&P Assessment and plan (1) Posterior circulation stroke: Admit the patient [facility] for close neuro monitoring She is not a tPA candidate Continue telemetry monitoring on the unit to evaluate for underlying arrhythmias. CT head unremarkable Plan MRI tomorrow ill-defined 7 mm rounded hypodensity in the left cerebellar hemisphere. Suspect this to be a stroke, appears to be ill-defined on CT. CT states this is a typical appearance for an ischemic process. MRI should better help differentiate. Echocardiogram ordered and pending Continue aspirin 81 mg daily Continue atorvastatin 40 mg daily Continue home dose of antihypertensives PT OT speech therapy assessment Attestations Medical Necessity Statement*: Anticipate greater than 2 midnight admission for MRI, posterior circulation stroke assessment. Coding Level of Care Code Acute Code for Chg Fwd Moderate MDM includes number and complexity of problems actively addressed during encounter, amount and/or complexity of data reviewed/ordered and described risk of complication, morbidity or mortality of management as documented Diagnoses Posterior circulation stroke I63.50
[2023-07-16] MEDS: metformin XR 500 MG Tablet PO (18:24)
[2023-07-16] MEDS: atorvastatin 40 mg Tablet PO (20:27)
[2023-07-17 03:24] VITALS: BP 134/72; PULSE 73; RESP 15; TEMP 36.4; O2SAT 96
[2023-07-17 05:21] LABS: Basophils % 0.5 %; Eosinophils # 0.1 10^3/uL (0.0-0.8); Eosinophils % 1.8 %; Hematocrit 39.8 % (36-47); Lymphocytes # 1.9 10^3/uL (0.8-4.8); Lymphocytes % 31.4 %; Mean Corpuscular HGB Conc 32.7 g/dL (30-55); Mean Corpuscular Hemoglobin 30.4 pg (27-33); Mean Platelet Volume 10.5 fL (7.4-10.4); Monocytes # 0.6 10^3/uL (0.2-0.9); Monocytes % 10.6 %; Neutrophils # 3.29 10^3/uL (1.8-7.7); Neutrophils % 55.4 %; Nucleated Red Blood Cells % 0 %; Platelet Count 197 10^3/cmm (157-399); Red Blood Count 4.28 10^6/uL (3.85-5.65); Red Cell Distribution Width 11.9 % (12.1-15.1); White Blood Count 5.95 10^3/uL (3.29-11.43)
[2023-07-17 05:34] LABS: Alanine Aminotransferase 10 U/L (0-33); Albumin Level 3.7 g/dL (3.5-5.2); Alkaline Phosphatase 48 U/L (35-105); Anion Gap 10.6 (5-19); Aspartate Amino Transferase 12 U/L (0-32); Blood Urea Nitrogen 15 mg/dL (8-23); Carbon Dioxide 31 mmol/L (22-29); Chloride 102 mmol/L (98-107); Chol HDL Ratio 3.48 mg/dL (0.0-4.40); Cholesterol 153 mg/dL (0-200); Globulin 2.4 g/dL (1.3-4.6); Glucose 117 mg/dL (65-115); HDL Cholesterol 44 mg/dL (60-100); LDL Cholesterol Calculated 78 mg/dL (50-129); LDL HDL Ratio 1.77 RATIO (0.00-3.22); Osmolality Calculated 292 mOsm/kg (285-295); Potassium 3.6 mmol/L (3.5-5.1); Sodium 140 mmol/L (136-145); Total Bilirubin 0.3 mg/dL (0.15-1.2); Total Protein 6.1 g/dL (6.6-8.7); Triglycerides 153 mg/dL (0-150)
[2023-07-17 05:36] LABS: Estmated Average Glucose 134; Hemoglobin A1C 6.3 % (4.0-6.0)
[2023-07-17] MEDS: levothyroxine 75 mcg Tablet PO (05:49)
[2023-07-17] MEDS: amlodipine 10 mg Tablet PO (05:49)
[2023-07-17] MEDS: hydroCHLOROthiazide 25 mg Tablet PO (05:49)
--- NOTE | 2023-07-17 06:00 | USCV_ITS ---
Francy Mcmullen Age: 77 Gender: F : 1945 Exam Date: 07/17/2023 10:25 Ordering Phys: Stella Patel MD Technologist: Exam Location: [facility] [place] Indication: stroke Risk Factors: Previous Vascular Surgery: Right Brachial BP: / Left Brachial BP: / Right Left Velocity (cm/s) Spectral Plaque Velocity (cm/s) Spectral Plaque Syst/Diast Broadening Syst/Diast Broadening 75.00/ 11.00 Prox CCA 63.30 / 12.10 82.15/ 19.25 Mid CCA 81.60 / 14.30 Homo 77.20/ 18.70 Rogelio Distal CCA 81.60 / 18.70 Homo 88.20/ 22.10 Prox ICA 63.90 / 16.50 61.80/ 18.10 Mid ICA 78.50 / 21.60 67.80/ 21.90 Distal ICA 102.50/ 28.70 114.70 ECA 94.80 1.07 ICA/CCA 1.26 Antegrade Vertebral Antegrade 36.90/ 6.00 cm/s 56.20/ 14.30 cm/s Tri Subclavian Tri 92.60 87.10 FINDINGS Comparison: none available. No significant elevation of systolic or diastolic velocities. Minimal bilateral scattered calcified plaque and intimal thickening throughout the common carotid arteries and extending through the bifurcation. Antegrade vertebral arteries. CONCLUSIONS Bilateral ICA stenosis less than 50%. Mild carotid atherosclerosis. Dr. Alana Stahl DO (Electronically Signed) Final Date: 17 July 2023 11:50 S
[2023-07-17 08:00] VITALS: BP 154/77; PULSE 64; RESP 18; TEMP 36.5; O2SAT 95
[2023-07-17] MEDS: metformin XR 500 MG Tablet PO ×2 (08:54→17:02)
[2023-07-17] MEDS: aspirin 81 mg EC Tablet PO (08:54)
[2023-07-17 15:46] VITALS: BP 132/64; PULSE 66; RESP 18; TEMP 36.6; O2SAT 93
--- NOTE | 2023-07-17 16:00 | P.PN_ITS ---
Subjective 2 Subjective: Patient was seen this morning denies any fevers, no chills, does report dizziness upon standing, unsteadiness Vitals/I&O/Wt Last Vital Signs Temp 97.8 F 07/17/23 15:46 Pulse 66 07/17/23 15:46 Resp 18 07/17/23 15:46 BP 132/64 07/17/23 15:46 Pulse Ox 93 07/17/23 15:46 O2 Del Method Room Air 07/17/23 15:46 07/17/23 07/17/23 07/17/23 06:59 14:59 22:59 Intake Total 240 / 240 Balance 240 / 240 Weight last 48 hrs Weight 71.169 kg Weight 76.657 kg Physical Exam 2 Const: COMMON NORMALS: no acute distress and patient oriented x3 Resp: COMMON NORMALS: normal respiratory effort, No retractions, No use of accessory muscles and clear to auscultation bilaterally AUSCULTATION: clear to auscultation bilaterally Cardio: COMMON NORMALS: regular rate, regular rhythm, S1 normal heart sound present and S2 normal heart sound present RATE: regular rate RHYTHM: r egular rhythm HEART SOUNDS: S1 normal heart sound present and S2 normal heart sound present GI: COMMON NORMALS: Normal to inspection, nondistended, normoactive bowel sounds present Extremity: COMMON NORMALS: no pedal edema Neuro: COMMON NORMALS: patient oriented x3, CN's II-XII intact bilaterally, moves all extremities and no focal motor deficits Psych: COMMON NORMALS: mental status grossly normal Data 07/17/23 04:10 07/17/23 04:10 A&P Assessment and plan (1) Posterior circulation stroke: Admit the patient to [facility] for close neuro monitoring She is not a tPA candidate Continue telemetry monitoring on the unit to evaluate for underlying arrhythmias. CT head There is a new finding of defined 7 mm rounded hypodensity anterior superior left cerebellar hemisphere with surrounding hypodensity but is ill-defined. Differential considerations include a developing infectious process, atypical appearance of ischemic lesion. Neoplasm is felt to be unlikely given the regional climate change analyst a 7 day period. Would recommend further evaluation with MRI pre and postcontrast MR/MR head wo con* [id number] IMPRESSION: Focal round area of restricted diffusion with FLAIR hyperintensity in left cerebellar hemisphere anteromedially corresponding to the lesion seen on CT. This could represent an acute small vessel infarct without hemorrhage. As mentioned on the original CT report contrast would also be useful to exclude possibility of other lesions that may produce restricted diffusion such as infection. Alternatively, follow-up exam in 7 days could be obtained. Echocardiogram and carotid us Continue aspirin 81 mg daily Continue atorvastatin 40 mg daily Continue home dose of antihypertensives PT OT speech therapy assessment Attestations 2 Medical Necessity Statement*: patient requires hospitalization for posterior circulation stroke Diagnoses Posterior circulation stroke I63.50
[2023-07-17 18:00] VITALS: BP 132/64; PULSE 66; RESP 18; TEMP 36.6
[2023-07-17 20:00] VITALS: BP 137/71; PULSE 61; RESP 18; TEMP 36.7; O2SAT 99
[2023-07-17] MEDS: atorvastatin 40 mg Tablet PO (20:39)
[2023-07-17 20:50] LABS: Glucose Point of Care 110 mg/dL (70-110)
[2023-07-17 23:51] VITALS: BP 130/70; PULSE 66; RESP 16; TEMP 36.9; O2SAT 98
[2023-07-18 04:27] VITALS: BP 145/70; PULSE 63; RESP 16; TEMP 37; O2SAT 95
[2023-07-18 04:29] LABS: Basophils % 0.5 %; Eosinophils # 0.1 10^3/uL (0.0-0.8); Eosinophils % 1.3 %; Hematocrit 39.7 % (36-47); Lymphocytes # 1.3 10^3/uL (0.8-4.8); Lymphocytes % 20.6 %; Mean Corpuscular HGB Conc 33.5 g/dL (30-55); Mean Corpuscular Hemoglobin 31.1 pg (27-33); Mean Platelet Volume 10.1 fL (7.4-10.4); Monocytes # 0.8 10^3/uL (0.2-0.9); Monocytes % 12.5 %; Neutrophils % 64.8 %; Nucleated Red Blood Cells % 0 %; Platelet Count 203 10^3/cmm (157-399); Red Blood Count 4.27 10^6/uL (3.85-5.65); Red Cell Distribution Width 11.9 % (12.1-15.1); White Blood Count 6.17 10^3/uL (3.29-11.43)
[2023-07-18 04:52] LABS: Alanine Aminotransferase 12 U/L (0-33); Alkaline Phosphatase 53 U/L (35-105); Anion Gap 11.6 (5-19); Aspartate Amino Transferase 12 U/L (0-32); Blood Urea Nitrogen 14 mg/dL (8-23); Calcium 9.2 mg/dL (8.5-10.5); Carbon Dioxide 32 mmol/L (22-29); Chloride 99 mmol/L (98-107); Globulin 2.5 g/dL (1.3-4.6); Glucose 126 mg/dL (65-115); Magnesium 1.6 mg/dL (1.7-2.3); Osmolality Calculated 290 mOsm/kg (285-295); Phosphorus 3.4 mg/dL (2.5-4.5); Potassium 3.6 mmol/L (3.5-5.1); Sodium 139 mmol/L (136-145); Total Bilirubin 0.4 mg/dL (0.15-1.2); Total Protein 6.5 g/dL (6.6-8.7)
[2023-07-18] MEDS: hydroCHLOROthiazide 25 mg Tablet PO (05:18)
[2023-07-18] MEDS: levothyroxine 75 mcg Tablet PO (05:18)
[2023-07-18] MEDS: amlodipine 10 mg Tablet PO (05:18)
[2023-07-18 06:21] LABS: Glucose Point of Care 110 mg/dL (70-110)
[2023-07-18 07:46] VITALS: BP 118/70; PULSE 70; RESP 16; TEMP 36.8; O2SAT 95
[2023-07-18] MEDS: aspirin 81 mg EC Tablet PO (08:33)
[2023-07-18] MEDS: metformin XR 500 MG Tablet PO (08:33)
[2023-07-18 10:00] VITALS: BP 118/70; PULSE 70; RESP 16; TEMP 36.8
[2023-07-18 10:55] LABS: Glucose Point of Care 127 mg/dL (70-110)
[2023-07-18 11:32] VITALS: BP 113/82; PULSE 84; RESP 17; O2SAT 93
--- NOTE | 2023-08-01 10:18 | PM.DCS ---
Discharge Providers Date of Admission: 07/16/23 12:36 Date of Discharge: August 01, 2023 Attending Provider at Admission: Stella Patel MD Attending Provider at Discharge: Jason Koch MD Primary Care Provider: Luca Sanon MD Diagnoses at Discharge Discharge Diagnosis (1) Posterior circulation stroke: Status: Acute Reason for Visit Reason for Visit: dizzy Hospital Course Hospital Course Francy Mcmullen is a 77 year old female with a past medical history of hypertension, diabetes who presented to the hospital with chief complaints of feeling unsteady for a week. Patient states her symptoms started last weekend when she was in her kitchen and suddenly she felt like the floor was tilted. This feeling passed, however next day while she was out dining at a restaurant she suddenly felt her left arm flap. She presented to the emergency room on 07/09/[address] of her head was unremarkable.There were noted to be some chronic white matter microangiopathic changes. She followed up with her primary care provider and was started on low-dose aspirin and simvastatin. She presented to the emergency room today when her symptoms did not resolve. She states that now she has had persistent dizziness. Anytime she gets up to attempt to walk she feels unsteady and as if she will fall to her [address] of the head was performed today and now shows a 7 mm hypodensity in the cerebellum, given her symptoms concern for posterior circulation stroke currently. There are no focal signs on neuroexam, however there was noted nystagmus when examined in the emergency room. Patient does not have any past history of stroke. Patient was admitted to [facility] for posterior circulation stroke, not a candidate for tPA, out of tPA window, CT head There is a new finding of defined 7 mm rounded hypodensity anterior superior left cerebellar hemisphere with surrounding hypodensity but is ill-defined. Differential considerations include a developing infectious process, atypical appearance of ischemic lesion. 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 Would recommend further evaluation with MRI pre and postcontrast MR/MR head wo con* [id number] IMPRESSION: Focal round area of restricted diffusion with FLAIR hyperintensity in left cerebellar hemisphere anteromedially corresponding to the lesion seen on CT. This could represent an acute small vessel infarct without hemorrhage. As mentioned on the original CT report contrast would also be useful to exclude possibility of other lesions that may produce restricted diffusion such as infection. Alternatively, follow-up exam in 7 days could be obtained. carotid us CONCLUSIONS Bilateral ICA stenosis less than 50%. Mild carotid atherosclerosis. cardiac echo CONCLUSIONS Normal left ventricular size and systolic function, EF 66 %. No regional wall motion abnormalities. Mild left ventricular hypertrophy. Grade I/IV diastolic dysfunction (abnormal relaxation filling pattern), normal to mildly elevated filling pressures. Thickened aortic valve. Mild mitral annular calcification. Trace tricuspid valve regurgitation. Estimated pulmonary artery peak systolic pressure 27 mmHg. There is no pericardial effusion. There are no intracardiac masses. No similar previous studies are available for comparison -Patient was admitted to [facility] for concerns for posterior circulation stroke, unsteadiness, dizziness, ? She was medically managed, workup as above, ? Overall patient clinically improved, on discharge no focal neurologic deficits, her dizziness has resolved, sheambulated without significant symptomatology no fevers, headache, blurry vision, no neck pain no neck stiffness, no focal weakness no focal paresthesias, ? Discussed MRI findings as above will have her follow-up with primary care as outpatient, if any fevers go to the emergency room ? Discharged on aspirin, statin, blood pressure monitor as outpatient through primary care ? Discharge with event monitor in place, ? Discharged with close follow-up with cardiology as outpatient, Physical Exam Const: COMMON NORMALS: no acute distress and patient oriented x3 Neck/C-Spine: COMMON NORMALS: no JVD Resp: COMMON NORMALS: normal respiratory effort, No retractions, No use of accessory muscles and clear to auscultation bilaterally AUSCULTATION: clear to auscultation bilaterally Cardio: COMMON NORMALS: no JVD, regular rate, regular rhythm, S1 normal heart sound present and S2 normal heart sound present RATE: regular rate RHYTHM: regular rhythm HEART SOUNDS: S1 normal heart sound present and S2 normal heart sound present GI: COMMON NORMALS: Normal to inspection, nondistended, normoactive bowel sounds present and non-tender Extremity: COMMON NORMALS: no pedal edema Neuro: COMMON NORMALS: patient oriented x3, CN's II-XII intact bilaterally, moves all extremities, no focal motor deficits and gait normal Psych: COMMON NORMALS: mental status grossly normal Discharge Data Studies Completed and Pending Completed Studies During Hospitalization Category Date Time Status CT head wo con* [id number] Stat Cat Scan 07/16/23 11:40 Completed XR chest 1V portable [id number] Stat Exams 07/16/23 11:40 Completed MR head wo con* [id number] Routine MRI 07/16/23 16:57 Completed CV carotid duplex BI* [id number] Routine Ultrasound 07/17/23 06:00 Completed CV. echo complete* [id number] Routine Ultrasound 07/16/23 16:52 Completed Radiology Impressions Chest X-Ray 07/16/23 11:40 IMPRESSION: No acute findings. Head CT 07/16/23 11:40 IMPRESSION: There is a new finding of defined 7 mm rounded hypodensity anterior superior left cerebellar hemisphere with surrounding hypodensity but is ill-defined. Differential considerations include a developing infectious process, atypical appearance of ischemic lesion. 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 Would recommend further evaluation with MRI pre and postcontrast. Head MRI 07/16/23 16:57 IMPRESSION: Focal round area of restricted diffusion with FLAIR hyperintensity in left cerebellar hemisphere anteromedially corresponding to the lesion seen on CT. This could represent an acute small vessel infarct without hemorrhage. As mentioned on the original CT report contrast would also be useful to exclude possibility of other lesions that may produce restricted diffusion such as infection. Alternatively, follow-up exam in 7 days could be obtained. Laboratory Results WBC 6.17 10^3/uL (3.29-11.43) 07/18/23 04:08 RBC 4.27 10^6/uL (3.85-5.65) 07/18/23 04:08 Hgb 13.30 g/dL (11.27-16.99) 07/18/23 04:08 Hct 39.7 % (36-47) 07/18/23 04:08 MCV 93.0 fl (85-98) 07/18/23 04:08 MCH 31.1 pg (27-33) 07/18/23 04:08 MCHC 33.5 g/dL (30-55) 07/18/23 04:08 RDW 11.9 % (12.1-15.1) L 07/18/23 04:08 Plt Count 203 10^3/cmm (157-399) 07/18/23 04:08 MPV 10.1 fL (7.4-10.4) 07/18/23 04:08 Neut % (Auto) 64.8 % 07/18/23 04:08 Lymph % (Auto) 20.6 % 07/18/23 04:08 Robertson % (Auto) 12.5 % 07/18/23 04:08 Eos % (Auto) 1.3 % 07/18/23 04:08 Baso % (Auto) 0.5 % 07/18/23 04:08 Neut # (Auto) 4.00 10^3/uL (1.8-7.7) 07/18/23 04:08 Lymph # (Auto) 1.3 10^3/uL (0.8-4.8) 07/18/23 04:08 Robertson # (Auto) 0.8 10^3/uL (0.2-0.9) 07/18/23 04:08 Eos # (Auto) 0.1 10^3/uL (0.0-0.8) 07/18/23 04:08 Baso # (Auto) 0.0 10^3/uL (0.0-0.1) 07/18/23 04:08 Nucleated RBC % (auto) 0 % 07/18/23 04:08 Nucleated RBCs # 0.0 /100WBC 07/18/23 04:08 Sodium 139 mmol/L (136-145) 07/18/23 04:08 Potassium 3.6 mmol/L (3.5-5.1) 07/18/23 04:08 Chloride 99 mmol/L (98-107) 07/18/23 04:08 Carbon Dioxide 32 mmol/L (22-29) H 07/18/23 04:08 Anion Gap 11.6 (5-19) 07/18/23 04:08 BUN 14 mg/dL (8-23) 07/18/23 04:08 Creatinine 0.6 mg/dL (0.5-0.9) 07/18/23 04:08 GFR Calculation Not Reportable 07/18/23 04:08 Glucose 126 mg/dL (65-115) H 07/18/23 04:08 POC Glucose 127 mg/dL (70-110) H 07/18/23 10:48 Estimat Average Glucose 134 07/17/23 04:10 Hemoglobin A1c 6.3 % (4.0-6.0) H 07/17/23 04:10 Calculated Osmolality 290 mOsm/kg (285-295) 07/18/23 04:08 Calcium 9.2 mg/dL (8.5-10.5) 07/18/23 04:08 Phosphorus 3.4 mg/dL (2.5-4.5) 07/18/23 04:08 Magnesium 1.6 mg/dL (1.7-2.3) L 07/18/23 04:08 Total Bilirubin 0.4 mg/dL (0.15-1.2) 07/18/23 04:08 AST 12 U/L (0-32) 07/18/23 04:08 ALT 12 U/L (0-33) 07/18/23 04:08 Alkaline Phosphatase 53 U/L (35-105) 07/18/23 04:08 Total Protein 6.5 g/dL (6.6-8.7) L 07/18/23 04:08 Albumin 4.0 g/dL (3.5-5.2) 07/18/23 04:08 Globulin 2.5 g/dL (1.3-4.6) 07/18/23 04:08 Triglycerides 153 mg/dL (0-150) H 07/17/23 04:10 Cholesterol 153 mg/dL (0-200) 07/17/23 04:10 LDL Cholesterol, Calc 78 mg/dL (50-129) 07/17/23 04:10 HDL Cholesterol 44 mg/dL (60-100) L 07/17/23 04:10 LDL/HDL Ratio 1.77 RATIO (0.00-3.22) 07/17/23 04:10 Cholesterol/HDL Ratio 3.48 mg/dL (0.0-4.40) 07/17/23 04:10 TSH 4.79 uIU/mL (0.27-4.20) H 07/16/23 11:57 Vitals Last Vital Signs Temp 98.3 F 07/18/23 10:00 Pulse 84 07/18/23 11:32 Resp 17 07/18/23 11:32 BP 113/82 07/18/23 11:32 Pulse Ox 93 07/18/23 11:32 O2 Del Method Room Air 07/18/23 11:32 Discharge Plan Discharge Patient Disposition: Home Health Service Condition: Stable Prescriptions: New atorvastatin 40 mg Tablet 40 mg PO BEDTIME 30 Days Qty: 30 0RF Continued amlodipine 10 mg tablet 10 mg PO QAM montelukast 10 mg tablet 10 mg PO QAM hydrochlorothiazide 25 mg tablet 25 mg PO QAM irbesartan 150 mg tablet 150 mg PO QAM metformin 500 mg tablet extended release 24 hr 500 mg PO BID levothyroxine 75 mcg tablet 75 mcg PO QAM aspirin 81 mg Tablet,Delayed Release (Dr/Ec) 81 mg PO QAM 30 Days Qty: 30 0RF Discontinued simvastatin 80 mg tablet 80 mg PO QAM Discharge Orders: Discharge Order (Routine); Ordered 07/18/23 Ordered By: Jason Koch Other Ambulatory Orders: DME: Jd (Order) Location: None Selected Ordered By: Jason Koch MCT/Event Monitor 30 Days (Routine) Timeframe: 1 Day Facility: [facility] - Location: Radiology Ordered By: Jason Koch Referrals: [facility] [Outside] (Now Known as [facility]) Pradeep Hernandez MD [Physician] - 08/31/23 7:30 am () Luca Sanon MD [Primary Care Provider] - 07/20/23 12:30 pm Discharge Diet: Cardiac Discharge Activity: Resume usual activity Patient Instructions: Meclizine (By mouth), Atorvastatin (By mouth), Opioid Safety, Stroke Stoplight Activity Restrictions/Additional Instructions: [facility] will contact you with an appointment date and time to have an event monitor placed.APPOINTMENT AUG 16 AT 2:30 Discharge Attestations Time Spent in Discharge Care*: greater than 30 min Quality Metrics Clinical Quality Measures [ Cerebrovascular Accident { Contraindication to Antithrombotic: None; antithrombotic prescribed; Contraindication to Anticoagulation: Overlap treatment not indicated; Contraindication to Statin: None; Statin prescribed;}] Coding Level of Care Code 99010 Total time (in minutes) for Discharge: 45 Diagnoses Posterior circulation stroke I63.50
== END 2023-07-18 12:35 | disposition home health service (06) ==
LOC: ER 12:38 → MEDSURG 14:18
PROVIDERS: Admitting Provider Student in an Organized Health Care Education/Training Program; Emergency Provider Emergency Medicine; PCP Family Medicine; Visit Provider Family Medicine
DX: I63.50 Cerebral infarction due to unspecified occlusion or stenosis of unspecified cerebral artery (principal); R42 Dizziness and giddiness; I10 Essential (primary) hypertension; E11.9 Type 2 diabetes mellitus without complications; Z91.81 History of falling; I44.0 Atrioventricular block, first degree
CPT/HCPCS: 36415; 36416; 70450; 70551; 71045; 80053; 80061; 82962; 83036; 83735; 84100; 84443; 85025; 92523; 92610; 93005; 93306; 93880; 97116; 97161; 97165; 99285; G0378; J8597

== ENCOUNTER 2023-08-01 11:14 | Outpatient (CLI) | payer MEDICARE, SELFPAY ==
--- NOTE | 2023-08-01 11:25 | USCV_ITS ---
Francy Mcmullen Age: 77 Gender: F : 1945 Exam Date: 08/01/2023 12:22 Ordering Phys: Luca Sanon MD Technologist: CT Exam Location: [facility] [place] Indication: neurologic changes BP: 130 / 79 HR: 53 Rhythm: Sinus Technical Quality: Adequate MEASUREMENTS (Male / Female) Normal Values 2D ECHO LVOT Diameter 2.1 cm LV Ejection Fraction MOD 2C 51.5 % LV Ejection Fraction 2C AL 52.7 % LA Diameter 3.9 cm Aorta at Sinotubular Diameter 2.1 cm IVC Diameter 1.3 cm M-MODE Aortic Annulus Diameter 3.4 cm LA Ao Ratio MM 1.2 MV E Point Septal Separation 0.8 cm DOPPLER AV Peak Velocity 212.0 cm/s LVOT Peak Velocity 149.0 cm/s AV Area Cont Eq vti 2.5 cm squared AV Area Cont Eq pk 2.4 cm squared MV E' Velocity 6.0 cm/s TR Peak Velocity 251.3 cm/s TR Peak Gradient 25.3 mmHg TV Peak E Velocity 67.0 cm/s Right Atrial Pressure 3.0 mmHg Pulmonary Artery Systolic Pressu 28.3 mmHg PV Peak Velocity 109.0 cm/s FINDINGS Left Ventricle Left ventricular is normal in size. LV systolic function is normal with EF of 55-60%. No regional wall motion abnormalities are seen. Grade 1 diastolic dysfunction. Right Ventricle Normal in size and function Right Atrium Normal in size Left Atrium Dilated Mitral Valve Mild mitral annular calcification. Mild mitral regurgitation Aortic Valve Mildly thickened aortic valve. No significant stenosis or regurgitation. Tricuspid Valve Mild tricuspid regurgitation. RVSP is 35 to 40 mmHg. This is consistent with mild pulmonary hypertension. Pulmonic Valve Mild pulmonic regurgitation Pericardium Normal Aorta Normal in size IVC Appears to be normal CONCLUSIONS LV systolic function is normal with EF of 55-60% Grade 1 diastolic dysfunction. Left atrial dilation Mild mitral regurgitation. Mildly thickened aortic valve. Mild tricuspid regurgitation. Mild pulmonary hypertension. Mild pulmonic regurgitation. Compared to prior echocardiogram from 06/2023, mild pulmonary hypertension and left atrial dilation is noted. Ranjan Vee MD (Electronically Signed) Final Date: 05 August 2023 15:06 S
== END 2023-08-01 11:15 | disposition home or self-care (01) ==
LOC: RAD 11:18
PROVIDERS: PCP Family Medicine; Visit Provider Family Medicine
DX: R29.90 Unspecified symptoms and signs involving the nervous system (principal); I08.8 Other rheumatic multiple valve diseases; I27.20 Pulmonary hypertension, unspecified
CPT/HCPCS: 93306

== ENCOUNTER → 2023-08-16 14:13 | Outpatient (BNVA) | payer MEDICARE, SELFPAY | PROVIDERS: PCP Family Medicine; Visit Provider Internal Medicine Cardiovascular Disease | DX: I63.9 Cerebral infarction, unspecified (principal); R55 Syncope and collapse; I10 Essential (primary) hypertension; E11.59 Type 2 diabetes mellitus with other circulatory complications; E78.5 Hyperlipidemia, unspecified; Z79.84 Long term (current) use of oral hypoglycemic drugs | CPT/HCPCS: 99204 ==

== ENCOUNTER → 2023-08-31 07:40 | Outpatient (BNVA) | payer MEDICARE, SELFPAY | PROVIDERS: PCP Family Medicine; Visit Provider Psychiatry & Neurology Neurology | DX: I63.9 Cerebral infarction, unspecified (principal); I10 Essential (primary) hypertension; R55 Syncope and collapse | CPT/HCPCS: 99203 ==

== ENCOUNTER 2023-09-26 12:56 | Outpatient (CLI) | payer MEDICARE, SELFPAY ==
--- NOTE | 2023-09-26 13:45 | MR_ITS ---
WS: [id number] MRI HEAD WITH CONTRAST TECHNIQUE: Sagittal T1, T2 axial, T2 axial FLAIR, axial susceptibility weighted imaging, axial diffus ion weighted images, and coronal T2 images were obtained. Pre and post-T1 axial and post T1 coronal i mages. ADC and FSPGR images. CLINICAL INFORMATION: I63.9 - Cerebral infarction, unspecified COMPARISON: MRI 07/16/2023 FINDINGS: No evidence of restricted diffusion to suggest acute ischemia today. Encephalomalacia and gliosis in the LEFT brachium pontis corresponding to the prior previously described lesion compatible with infar ct. A few additional tiny punctate foci of restricted diffusion in the LEFT cerebellum seen on the pr ior study not visualized today. Normal vascular flow voids at the skull base. No extra-axial fluid collections. Mild small vessel brittany nges. Moderate parenchymal volume loss. Paranasal sinuses and mastoid air cells are well aerated. No hemosiderin on the susceptibly weighted images. Normal optic chiasm and pituitary infundibulum. Mild symmetric atrophy temporal lobes and hippocampal formations. Paranasal sinuses and mastoid air cells are well aerated. Normal posterior nasopharynx. No abnormal gadolinium enhancement. Normal dural venous sinuses. IMPRESSION: 1. No evidence of restricted diffusion to suggest acute ischemia today. 2. Previously described lesion in the LEFT brachium pontis with imaging characteristics compatible w ith a chronic infarct today. 3. No hemosiderin on susceptibly weighted images. 4. Mild small vessel changes with moderate parenchymal volume loss. 5. No abnormal intracranial enhancement.
== END 2023-09-26 12:57 | disposition home or self-care (01) ==
LOC: RAD 12:56
PROVIDERS: PCP Family Medicine; Visit Provider Psychiatry & Neurology Neurology
DX: I63.9 Cerebral infarction, unspecified (principal)
CPT/HCPCS: 70553

== ENCOUNTER → 2023-10-20 09:19 | Outpatient (BNVA) | payer MEDICARE, SELFPAY | PROVIDERS: PCP Family Medicine; Visit Provider Psychiatry & Neurology Neurology | DX: R55 Syncope and collapse (principal); R42 Dizziness and giddiness; Z86.73 Personal history of transient ischemic attack (TIA), and cerebral infarction without residual deficits | CPT/HCPCS: 95819 ==

== ENCOUNTER → 2023-11-01 13:08 | Outpatient (BNVA) | payer MEDICARE, SELFPAY | PROVIDERS: PCP Family Medicine; Visit Provider Psychiatry & Neurology Neurology | DX: I69.398 Other sequelae of cerebral infarction (principal); I10 Essential (primary) hypertension; R55 Syncope and collapse; I63.9 Cerebral infarction, unspecified; R22.42 Localized swelling, mass and lump, left lower limb; M71.22 Synovial cyst of popliteal space [Baker], left knee; E55.9 Vitamin D deficiency, unspecified | CPT/HCPCS: 36415; 81241; 82306; 82746; 83090; 83921; 85210; 86146; 93971; 99212 ==

== ENCOUNTER 2023-11-01 16:03 | Outpatient (CLI) | payer MEDICARE, SELFPAY ==
--- NOTE | 2023-11-01 16:30 | USCV_ITS ---
Francy Mcmullen Age: 78 Gender: F : 1945 Exam Date: 11/01/2023 16:22 Ordering Phys: Pradeep Hernandez MD Technologist: Davin Barrera [place] [facility] [place]ication: LE LT Swelling and lump HISTORY: Lower extremity swelling. PROCEDURES: Venous duplex imaging was performed in only the left lower extremity. The following venous structures were evaluated: common femoral vein, profunda vein, proximal portion of the greater saphenous vein, superficial femoral vein, and the popliteal vein. In addition, the posterior tibial and peroneal trunk were evaluated. Serial compression, augmentation maneuvers, and spectral Doppler flow evaluation were performed. FINDINGS: No evidence of DVT seen in any vessel visualized at this time. Fluid collection noted posterior to knee into prox calf area CONCLUSIONS No evidence of left lower extremity DVT. Complex popliteal cyst measuring 2.8 x 0.8cm with internal debris Gerry Dave MD (Electronically Signed) Final Date: 01 November 2023 16:51 S
== END 2023-11-01 16:04 | disposition home or self-care (01) ==
LOC: RAD 16:04
PROVIDERS: PCP Family Medicine; Visit Provider Psychiatry & Neurology Neurology
DX: R55 Syncope and collapse; I63.9 Cerebral infarction, unspecified; R22.42 Localized swelling, mass and lump, left lower limb; M71.22 Synovial cyst of popliteal space [Baker], left knee
CPT/HCPCS: 36415; 81241; 82306; 82746; 83090; 83921; 85210; 86146; 93971

== ENCOUNTER 2024-03-05 07:08 | Outpatient (CLI) | payer MEDICARE, SELFPAY ==
[2024-03-05 07:53] VITALS: BMI 27.4
--- NOTE | 2024-03-05 09:20 | NMCV_ITS ---
NM kris perf SPECT r/s* [id number] Francy Mcmullen Age: 78 Gender: F : 1945 Exam Date: 03/05/2024 09:20 Ordering Phys: Kirby Moreno MD ([email or web address]) Technologist: DANIELLA Meeks Exam Location: [facility] Indications: Abnormal event monitor STRESS TEST [facility] IMAGE PROTOCOL Rest/Stress 1 Lexiscan Day Radiopharmaceutical Dose (mCi) Administration Site Administered by Rest: Tc-99m 10.7 IV DANIELLA Meeks Stress:Tc-99m 32.7 IV DANIELLA Meeks Rest: 05-Mar-2024 60 Discovery 630 Stress: 05-Mar-2024 30 Discovery 630 0.4mg Lexiscan. Images obtained in supine and prone position. SPECT RESULTS Technical Quality: Good Raw Data Analysis: breast attenuation Image Corrections: No attenuation or motion correction applied Summed Stress Score: 0 Summed Rest Score: 0 Summed Difference Score: 0 PERFUSION FINDINGS SPECT images demonstrate homogeneous tracer distribution throughout the myocardium. FUNCTIONAL RESULTS (calculated via Gated SPECT) Stress Image LV EF (%): 85 Stress EDV (mL):59 TID: 0.84 Stress ESV (mL):9 FUNCTIONAL FINDINGS: There is normal left ventricular systolic function. IMPRESSIONS 1. Normal myocardial perfusion imaging with no evidence of ischemia. 2. LV systolic function is normal. Ranjan Vee MD (Electronically Signed) Final Date: 05 March 2024 17:52 S
--- NOTE | 2024-03-05 09:20 | ECG_ITS ---
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 Interpretive Statements NAME OF STUDY: LEXISCAN SESTAMIBI STRESS TEST INDICATION: [ABNORMAL EVENT MONITOR] Procedure: At the baseline, the blood pressure was 164/68 mmHg with a heart rate of 63 bpm. The electrocardiogram showed normal sinus rhythm, normal axis with normal ST and T's. The Lexiscan was infused over a period of 20 seconds. A total of 0.4 mg of Lexiscan was infused. The stress phase was continued for a total of 5 minutes. Heart rate was at the end of stress phase was 84 bpm and a blood pressure of 125/57 mmHg. The EKG at the peak infusion revealed normal sinus rhythm with no significant ST-T wave changes. Sestamibi was injected 20 seconds after the Lexiscan infusion. Blood pressure at the end of recovery phase was 124/58 mmHg with a heart rate of 86bpm Conclusion: 1. Normal EKG response to Lexiscan infusion 2. No Lexiscan induced chest pain or cardiac arrhythmia. 3. Normal blood pressure and heart rate response. 4. Sestamibi/sestamibi perfusion scan pending; see separate report. Electronically Signed On 03-10-2024 21:10:26 CDT by Ranjan Vee M.D. [email or web address]
[2024-03-05] MEDS: regadenoson 0.4 Mg/5 ml Syringe IVP (10:15)
[2024-03-05 10:37] VITALS: BP 126/84; PULSE 62
== END 2024-03-05 07:09 | disposition home or self-care (01) ==
PROVIDERS: PCP Family Medicine; Visit Provider Internal Medicine Cardiovascular Disease
DX: R94.31 Abnormal electrocardiogram [ECG] [EKG] (principal)
CPT/HCPCS: 36415; 78452; 93017; 96374; A9500; J2785

== ENCOUNTER 2024-08-29 09:10 | Outpatient (CLI) | payer MEDICARE, SELFPAY | END 2024-08-29 09:11 | disposition home or self-care (01) | LOC: SPT 09:11 | PROVIDERS: PCP Family Medicine; Visit Provider Student in an Organized Health Care Education/Training Program | DX: Z46.89 Encounter for fitting and adjustment of other specified devices (principal); M25.562 Pain in left knee | CPT/HCPCS: 20610; 99204; J3301; L1852 ==

== ENCOUNTER 2024-11-18 20:00 | Outpatient (CLI) | payer MEDICARE, SELFPAY | END 2024-11-18 20:01 | disposition home or self-care (01) | LOC: SLEEP 21:09 | PROVIDERS: PCP Family Medicine; Visit Provider Family Medicine | DX: G47.33 Obstructive sleep apnea (adult) (pediatric) (principal) | CPT/HCPCS: 95810 ==

== ENCOUNTER → 2024-12-10 11:15 | Outpatient (BNVA) | payer MEDICARE, SELFPAY | PROVIDERS: PCP Family Medicine; Visit Provider Student in an Organized Health Care Education/Training Program | DX: M17.12 Unilateral primary osteoarthritis, left knee (principal) | CPT/HCPCS: 20610; 99213; J3301; J9999 ==

== ENCOUNTER → 2024-12-24 10:29 | Outpatient (BNVA) | payer MEDICARE, SELFPAY | PROVIDERS: PCP Family Medicine; Visit Provider Student in an Organized Health Care Education/Training Program | DX: M17.11 Unilateral primary osteoarthritis, right knee (principal) | CPT/HCPCS: 20610; 73560; 73565; 99214; J3301; J9999 ==

== ENCOUNTER → 2025-04-16 12:35 | Outpatient (BNVA) | payer MEDICARE, SELFPAY | PROVIDERS: PCP Family Medicine; Visit Provider Student in an Organized Health Care Education/Training Program | DX: M17.0 Bilateral primary osteoarthritis of knee (principal); Z79.84 Long term (current) use of oral hypoglycemic drugs | CPT/HCPCS: 99214 ==

== ENCOUNTER 2025-05-13 07:53 | Outpatient (CLI) | payer MEDICARE, SELFPAY ==
--- NOTE | 2025-05-13 08:15 | CT_ITS ---
WS: [id number] CT LEFT knee, noncontrast HISTORY: LEFT TOTAL KNEE ARTHROPLASTY TECHNIQUE: Protocol for [facility] total knee replacement has been obtained. This includes axial imaging through the LEFT hip, LEFT knee and LEFT ankle. DLP: 996.26 mGy.cm COMPARISON: 12/24/2024 Mild SI joint arthritis. Degenerative air in the SI joints. Very minimal narrowing of the hip joint. No fractures. No soft tissue mass. LEFT knee: Advanced tricompartment joint space narrowing. Bone upon bone in the medial compartment. Loss of the cartilage. Cortical surface irregularity. No fractures. Mild lateral subluxation of the patella. Moderate-sized suprapatellar joint effusion. Large Umaña's cyst. Mild popliteal artery calcifications. Popliteal cyst has been previously described. LEFT ankle: Negative. CT/CT knee [facility] [id number] IMPRESSION: CT imaging provided for [facility] robotic total knee replacement.
== END 2025-05-13 07:54 | disposition home or self-care (01) ==
LOC: RAD 07:58
PROVIDERS: PCP Family Medicine; Visit Provider Student in an Organized Health Care Education/Training Program
DX: Z96.652 Presence of left artificial knee joint (principal); M17.12 Unilateral primary osteoarthritis, left knee; M24.10 Other articular cartilage disorders, unspecified site; M94.8X8 Other specified disorders of cartilage, other site; S83.012A Lateral subluxation of left patella, initial encounter; X58.XXXA Exposure to other specified factors, initial encounter; M25.462 Effusion, left knee; M71.22 Synovial cyst of popliteal space [Baker], left knee
CPT/HCPCS: 73700

== ENCOUNTER → 2025-05-20 14:38 | Outpatient (BNVA) | payer MEDICARE, SELFPAY | PROVIDERS: PCP Family Medicine; Visit Provider Physician Assistant | DX: Z01.818 Encounter for other preprocedural examination (principal); M17.12 Unilateral primary osteoarthritis, left knee; M25.562 Pain in left knee; E11.9 Type 2 diabetes mellitus without complications; I10 Essential (primary) hypertension | CPT/HCPCS: 36415; 80053; 81003; 83036; 85025 ==

== ENCOUNTER 2025-06-10 08:51 | Observation (INO) | payer MEDICARE, SELFPAY ==
[2025-06-09] VITALS (19 sets, daily range): BP systolic 118–175; BP diastolic 47–86; PULSE 59–85; RESP 11–28; TEMP 36.1–36.8; O2SAT 91–100; BMI 28.9
[2025-06-09] MEDS: acetaminophen 1,000 MG/100 ML PIGGYBACK 400 MG IV ×3 (06:31→17:10)
[2025-06-09 06:45] LABS: Hematocrit 37.4 % (36-47); Hemoglobin 12.50 g/dL (11.27-16.99); Mean Corpuscular HGB Conc 33.4 g/dL (30-55); Mean Corpuscular Hemoglobin 30.1 pg (27-33); Mean Corpuscular Volume 90.1 fl (85-98); Nucleated Red Blood Cells % 0 %; Platelet Count 218 10^3/cmm (157-399); Red Blood Count 4.15 10^6/uL (3.85-5.65); White Blood Count 5.62 10^3/uL (3.29-11.43)
--- NOTE | 2025-06-09 06:51 | W.PM.OPSUD ---
Surgery/Procedure H&P Update DATE OF PROCEDURE: June 09, 2025 DATE H&P PERFORMED: 05/20/25 H&P UPDATE INFORMATION: I have reviewed H&P completed within last 30 days, I have examined patient prior to procedure and No changes to prior documentation CHANGES TO PREVIOUS DOCUMENTATION: patient is cleared the preoperative clearance process has been over 90 days out since her last injection back in November. No change in her health since previous office visit and was cleared by the preoperative clearance team patient understands ins and out's procedure risk benefits complication alternative surgical nonsurgical treatment options. Understand risk of surgery patient like to proceed with surgical intervention. All questions answered at this time. PREOP DIAGNOSIS: Left knee DJD PRIMARY INDICATION FOR PROCEDURE: Left knee DJD PLANNED PROCEDURE: Operation Date: 06/09/25 07:00 Proposed Procedures p LEFT Sarabjit Robot Total Knee Arthroplasty(Left) - Robert Hendricks DO
[2025-06-09] MEDS: ceFAZolin 2,000 MG in sodium chloride 0.9% (plus) 50 ML 100 MG IV ×3 (06:58→17:10)
[2025-06-09 06:59] LABS: Anion Gap 16.7 (5-19); Blood Urea Nitrogen 17 mg/dL (8-23); Calcium 9.1 mg/dL (8.5-10.5); Carbon Dioxide 26 mmol/L (22-29); Chloride 104 mmol/L (98-107); Creatinine Clr Calc Pharmacy 49.1400; Glucose 129 mg/dL (65-115); Osmolality Calculated 299 mOsm/kg (285-295); Potassium 3.7 mmol/L (3.5-5.1); Sodium 143 mmol/L (136-145)
[2025-06-09] MEDS: tranexamic acid 1,000 mg/10mL SDV 1000 MG IV (07:20)
--- NOTE | 2025-06-09 07:51 | ANES.PREANE2 ---
Pre-Anesthetic Assessment Height/Weight: Height 1.55 m Weight 69.4 kg Temp Pulse Resp BP Pulse Ox O2 Del Method 97.6 F 59 L 18 175/76 97 Room Air 06/09/25 06:09 06/09/25 06:09 06/09/25 06:09 06/09/25 06:09 06/09/25 06:09 06/09/25 06:09 Preop Diagnosis: Left knee DJD Operation Date: 06/09/25 07:00 Proposed Procedures p LEFT Sarabjit Robot Total Knee Arthroplasty(Left) - Robert Hendricks DO Familial anesthetic complications: None Was Beta Clint taken within 24 hours: N/A Was Clonidine taken within 24 hours: N/A Last intake: Intake Last Liquid Date 06/08/25 Last Liquid Time 19:00 Last Solid Date 06/08/25 Last Solid Time 19:00 Social No alcohol and No tobacco Exam alert, oriented x 3, clear to auscultation bilaterally and regular rate & rhythm Airway Mallampati: Class II CV/HEM Hypertension Metabolic Diabetes Mellitus, Hyperlipidemia and Thyroid Disease Neuropsych Cerebrovascular Accident Anesthetic Plan ASA status: 3 Anesthesia: Regional (specify below) Risk of > 500 ml blood loss (7ml/kg in children): No Medications/Allergies Home Medications ?Medication ?Instructions ?Recorded ?Confirmed ?Last Taken ?Type amlodipine 10 mg tablet 10 mg PO QAM 07/18/22 06/09/25 06/08/25 History hydrochlorothiazide 25 mg tablet 25 mg PO QAM 07/18/22 06/09/25 06/08/25 History irbesartan 150 mg tablet 150 mg PO QAM 07/09/23 06/09/25 06/07/25 History metformin 500 mg tablet,extended 500 mg PO BID 07/09/23 06/09/25 06/07/25 History release 24 hr levothyroxine 75 mcg tablet 75 mcg PO QAM 07/16/23 06/09/25 06/08/25 History aspirin 81 mg tablet,delayed 81 mg PO QAM 30 days #30 tabs 07/18/23 06/09/25 06/03/25 Rx release atorvastatin 40 mg tablet 40 mg PO DAILY 08/31/23 06/09/25 06/08/25 History Left knee medial crisis nurse brace #1 ea 08/29/24 05/20/25 Unknown Rx cholecalciferol (vitamin D3) 1,250 See Rx Instructions .Route 01/07/25 06/09/25 Unknown Rx mcg (50,000 unit) capsule .COMPLEX #14 caps Allergies Allergy/AdvReac Type Severity Reaction Status Date / Time No Known Allergies Allergy Verified 06/09/25 06:13 Current Medications Generic Name Dose Route Start Last Admin Trade Name Rinku PRN Reason Stop Dose Admin Sodium Chloride 1,000 mls @ 30 mls/hr 06/09/25 06:15 06/09/25 06:53 Sodium Chloride 0.9% IV 06/10/25 06:14 30 mls/hr .Q24H LUIS Administration PFSH Anesthesia Medical History Diabetes mellitus Hypertension Rotator cuff arthropathy of right shoulder Family History Mother Stroke Brother Stroke Social History Smoking and tobacco/nicotine status: never used tobacco/nicotine Alcohol intake: never Substance/Drug Use: never Marital status: Data Anesthesia 06/09/25 06:30 06/09/25 06:20 Short CBC 06/09/25 Range/Units 06:30 WBC 5.62 (3.29-11.43) 10^3/uL Hgb 12.50 (11.27-16.99) g/dL Hct 37.4 (36-47) % MCV 90.1 (85-98) fl Plt Count 218 (157-399) 10^3/cmm Neut % (Auto) 58.9 % Neut # (Auto) 3.31 (1.8-7.7) 10^3/uL BMP 06/09/25 06:20 Sodium 143 Potassium 3.7 Chloride 104 Carbon Dioxide 26 BUN 17 Creatinine 0.5 Glucose 129 H Calcium 9.1 Cardiac Studies: Echocardiogram 08/01/23 Sestamibi Stress Test (Cardiology) 03/05/24 Cardiac Event Monitor 08/24/23 Anesthesia Procedures Nerve Block Nerve Block 1: Main Anesthesia: spinal anesthesia block Time Out Performed: Yes Consent: requested by attending/covering physician, from patient, from other, risks and benefits reviewed and patient agrees to proceed Nerve block location: popliteal (L) Anesthesia monitors applied: pulse oximetry, EKG and BP cuff Nerve block position: supine Anesthetic Used: ropivicaine 0.5% (30 ml) and with decadron (4 mg) Ultrasound used to: recognize landmarks and visualize and ID femerol nerve Nerve Stimulator Used?: No Interscalene/Femoral BLK: 4 stimuplex 21 g needle used for position and inplane approach, visualize local anesthetic spread and no vascular puncture identified Injection: neg aspiration of heme Patient Tolerated Procedure: well Complications: none
[2025-06-09] MEDS: tranexamic acid 1,000 mg/10mL SDV 1000 MG XX (07:55)
[2025-06-09] MEDS: ROPivacaine 0.2% Premix 100 mL 200 MG INTRA-ARTI (07:55)
--- NOTE | 2025-06-09 09:10 | ANE.PACU2 ---
Inpatient post-anesthesia follow up: Airway intact: Yes Vital signs: Temperature 97.6 F Pulse Rate 69 Respiratory Rate 17 Blood Pressure 137/62 Pulse Oximetry 92 Oxygen Delivery Me thod Room Air Oxygen Flow Rate 10 Fraction of Inspir ed Oxygen Hydration adequate: Yes Nausea and vomiting: No Pain level: 1 Mental status: Baseline
--- NOTE | 2025-06-09 09:20 | XR_ITS ---
WS: [id number] Exam: XR knee LT 1-2V 81606 Date/Time of Exam: 06/09/2025 9:20 AM Reason For Exam: post L TKA Comparison 12/24/2024. Total knee prosthesis is in place in excellent position. Postop changes in the soft tissues XR/XR knee LT 1-2V [id number] IMPRESSION: 1. Total knee prosthesis in excellent position.
--- NOTE | 2025-06-09 09:21 | P.BOP_ITS ---
Date of Procedure: [June 09, 2025] Surgeon: [Dr. Hendricks DO] [employer] Founder(s): [German Hendricks PA-C] Procedure(s) performed: [Left total knee arthroplasty with Sarabjit robotic assist] Findings of the procedure(s): [Left knee degenerative joint disease. Procedure went well as planned] Estimated blood loss: [25 mL] Specimen(s) removed: [Femur and tibial shavings] Post-operative diagnosis: [Left knee degenerative joint disease.]
--- NOTE | 2025-06-09 09:21 | P.OP_ITS ---
Operative Report Date of procedure: June 09, 2025 Surgeon: Robert Hendricks DO Coremaker Helper: German Hendricks PA-C: PA was necessary for assistance in this case with leg positioning retraction and protection of neurovascular structures as well as assistance in implantation wound closure and dressing application. Procedure: Preoperative diagnosis: Left knee degenerative joint disease Post-op diagnosis: Same Procedure done: Left total knee arthroplasty, cemented?robotic assisted Sarabjit Implants: [place] triathlon size 4 femur CR cemented?left [place] triathlon size? 3 tibia universal baseplate cemented [place] triathlon symmetric patella size 31 mm Adelia triathlon polyethylene 11mm Surgeon: Robert Hendricks DO Estimated blood?loss: 25 mL Tourniquet 54 minutes IV fluids: 1200 mL Urine output: 450 mL Complications: None Condition: stable Disposition: floor Brief History: Patient is a 79-year-old female with with chronic?left knee degenerative joint disease.? Patient has been worked up in the outpatient setting in the orthopedic office at this point time through shared decision making given? [id number] arthritis as well as failed conservative treatment, and pt would?like to proceed with a?left total knee arthroplasty.? Through shared decision making elected to proceed with surgical intervention for?left total knee arthroplasty?Sarabjit robotic assisted.? We talked about continued conservative treatment and surgical intervention as far as the risk benefits complications alternatives surgical and nonsurgical treatment options.? At this point time understanding patient risks with surgery she agrees to proceed with surgical intervention.? Once again? risk with surgery include but are not?limited to make it better make it worse blood clot, heart attack, stroke, on the table, infection, injury to nerves or vessels, persistent pain, arthrofibrosis, implant failure.? Understanding these risks patient agrees to proceed with surgical intervention consent was obtained in the preoperative holding area.? All questions answered. Procedure: Patient was seen and evaluated in the preoperative holding area.? Consent was reviewed and signed with patient with plan for?left total knee arthroplasty.? All questions answered.? Correct extremity marked.? Patient seen and evaluated by the anesthesia department and once cleared for surgery was taken back to the operative suite.? Patient was placed into a supine position on the OR table.? All bony prominences were well-padded.? Patient was appropriately secured to the bed.? Patient underwent anesthesia per the anesthesia department.? Patient received spinal anesthesia and? Rachel catheter was placed.? A nonsterile tourniquet was applied to the?left thigh.? At this point in time a final timeout performed.? Patient received appropriate preoperative antibiotics and TXA. Next the?left?lower extremity was then prepped and draped in standard orthopedic fashion. Esmarch tourniquet was used exsanguinate the?left?lower extremity.? Tourniquet was insufflated to 250 mmHg. A standard anterior incision was made over midline of the knee.? Sharp scalpel excision through skin and subcutaneous tissue full-thickness skin flaps were made.? Fascia was elevated off of the extensor retinaculum was stable with medial parapatellar arthrotomy was then made.? The performed standard sequential releases..? Immediately on entry into the joint patient was found to have severe eburnated bone and tricompartmental arthritic changes noted.? With significant osteophyte formation.? Next the the patella was then stuffed and the knee was then flexed.?? Peter was placed superiorly around the anterior aspect of the femur this was freed of synovium and I subsequently then placed by 2 femur pins to establish my femur arrays for the Sarabjit robot.? These were then placed bicortically and? femur array was then appropriately secured with appropriate visualization.? Next attention was turned towards the tibial rays.? These were then drilled sequentially bicortically in parallel fashion and intraincisional.? I then placed my guide as well as my tibial array on in place.? This was appropriately secured and had excellent visualization with the Sarabjit robot.? Next the tibial checkpoint as well as femur checkpoint were then placed.? At this point time I then subsequently established my head center as well as my medial?lateral malleoli as well as my checkpoints.? Next utilizing standard Sarabjit technology I then mapped out the appropriate points and confirmation points around the femur as well as the tibia in standard fashion.? Once this was then done I then removed all osteophytes in preparation for dynamic testing.? All osteophytes were removed as well as I removed the ACL and the PCL was excised due to its significant tearing and degeneration noted.? At this point time the knee was brought into full extension and we performed our standard evaluation of our gap balancing stressing his?ligaments and extension as well as flexion appropriate adjustments were made to have appropriate gap balancing in both flexion and extension.? This plan for final cuts. We were able to correct patient's 8 degree varus deformity down to roughly 1 degree within patient's ligamentous tolerances. We get a preoperative plan evaluating our implants which was a size 4 femur and a size 3 tibia.? Next we brought in the Sarabjit robot and sequentially made our femur cuts.? All excess bony cuts were then removed.? Finally we made our tibial cut.? Once this was done a standard PCL retractor was then placed into this position I excised the medial and?lateral meniscus.? The tibial cut was then subsequently removed all excess bony debris was removed.? I then utilized a?lamina cnc specialist and remove the posterior osteophytes.? At this point time sized the tibia and confirmed this was a size 3.? I utilized our blunt probe to establish rotation of tibial implant.? Once this was done I then placed my tibia size 3 trial in appropriate position and then subsequently placed tibial pins to hold this into place and trialed up to a size 11 mm poly as well as a size 4 femur which was appropriately impacted in place knee was then subsequently brought into extension. Trials were then assessed,? this was stable with varus valgus stress in extension as well as had symmetrical translation when brought into flexion demonstrating symmetrical gaps. I had excellent balance gaps in flexion and extension with varus and valgus stresses.? At this point I was satisfied with these implants these were then verified and opened on the back table size 3 tibia, size 4 femur,? size 9 mm polythickness.? We did confirm appropriate gap balancing and stresses as well as alignment utilizing? Sarabjit and were satisfied with this plan.? ?At this point time with my trials in place I then towel clip the patella everted this made appropriate measurements subsequently utilizing freehand technique performed by patellar resurfacing this was confirmed to be appropriate resection and subsequently sized to be a 31 mm symmetric.? My drill peg guides were then clamped and appropriate position and appropriate position in the patella for appropriate tracking and parallel with the joint.? Pegs were drilled trial implant was placed and the knee was then subsequently ranged and found to have excellent patellar tracking.? Femur pegs were then drilled.? At this point time all of our trial implants were removed.? All checkpoints as well as guidepins and arrays were removed and appropriate counts made.? Satisfied with our tibial placement rotation I then utilized the keel punch and prepped the tibia.? The wound bed? was thoroughly irrigated and dried and prepped for cementation.? Cement was mixed on the back table.? Once cement was ready this was then covered onto the tibia and the tibial baseplate was then impacted and all excess cement was removed.? Next the polyethylene was then impacted into place on the tibial baseplate.? Next cement was placed onto the femur as well as under the femur implants and impacted in to place and all excess cement was extruded and removed.? Knee was taken into full extension? to clear all excess cement was removed.? Warm saline was placed over the joint.? I then towel clip patella and dried for cementation. cemented the patella into place.? This was all clamped and the cement was allowed to cure.? Thorough irrigation performed with pulse?lavage.? I then placed my periarticular injection while the cement was curing.? Once cured the knee was taken through range of motion and had excellent stability and gaps were balanced in flexion and extension.? Tourniquet was then deflated. hemostasis satisfactory with electrocautery.? Vancomycin powder placed in wound bed for antibiotic infection prophylaxis. next I then subsequently closed the capsule with Ethibond suture as well as a running strata fix suture.? Knee was then taken through range of motion 20 times.? Next the skin was then closed in?layered fashion of running stratifix sutures of deep and subcutenous tissue and skin.? ?closed in flexion and Prineo glue was then placed over the incision this allowed to cure.? Incision was covered with michael incisional VAC, with ABDs soft roll and Camilo wrap.? Patient was then awakened from anesthesia and taken to PACU in stable condition. Disposition: Patient taken to PACU in stable condition will be admitted to the floor for pain control PT/OT weight-bear as tolerated?left?lower extremity dressing changes as needed, DVT prophylaxis. Pain control. Patient will receive appropriate postoperative antibiotics. patient will be seen today by the internal medicine team for medical management.? Patient will follow up with the office in 2 weeks.? Patient understands agrees with current plan.? All questions answered.
--- NOTE | 2025-06-09 09:29 | PM.PACU ---
PACU note Narrative: Patient is an 79-year-old female who just underwent a left knee degenerative joint disease. Pt transferred to PACU in stable condition. Dressing is dry. pt is awake and alert. pt can wiggle toes and plantarflex and dorsiflex foot. Distal pulses are palpable toes are warm and well-perfused. Cap refill is normal and under 2 seconds. Sensation to foot is intact. Pain is controlled. Exam: awake Disposition: admitted
--- NOTE | 2025-06-09 10:05 | PC.NURSE ---
0947 - accepted into room 260 with Kinga, RN no distress noted in pt upon this nurse exiting care - BP 137/62 - pulse 63 - 0292% - temp 97.6
[2025-06-09] MEDS: chlorhexidine gluconate 0.12% Btl 473 mL 30 ML MUCOUS MEM ×3 (11:42→20:55)
--- NOTE | 2025-06-09 12:21 | PM.CONSULT ---
Providers/Reason For Consult Consulting Physician/Specialty*: [facility] Reason for Consult*: Medical management Attending Physician: Robert Hendricks DO Primary Care Provider: Luca Sanon MD History of Present Illness History of Present Illness Francy Mcmullen is a 79 year old female after an uneventful L TKA, doing well postoperatively, starting to get a little bit of pain. She is awake and alert, otherwise no toxic breathing, no chest pain or pressure, no nausea or vomiting. She has diabetes which she treats with mental metformin at home, she also monitors and manages hypertension with medications including irbesartan HCTZ amlodipine. Takes a statin for hypercholesterolemia. Review of Systems Const: Denies: fever(s), chills, body aches or malaise ENMT: Denies: throat pain Card: Denies: chest pain, edema, pre-syncope or dyspnea on exertion Resp: Denies: dyspnea, productive cough, change in phlegm color or hemoptysis GI: Denies: abdominal pain, nausea, vomiting, diarrhea, constipation, hematochezia or melena : Denies: flank pain, urinary frequency or hematuria Musc: Denies: back pain, joint swelling or joint redness Skin/Breast: Denies: rash or new lesions Neuro: Denies: headache(s) or confusion Medications/Allergies Home Medications ?Medication ?Instructions ?Recorded ?Confirmed ?Last Taken ?Type amlodipine 10 mg tablet 10 mg PO QAM 07/18/22 06/09/25 06/08/25 History hydrochlorothiazide 25 mg tablet 25 mg PO QAM 07/18/22 06/09/25 06/08/25 History irbesartan 150 mg tablet 150 mg PO QAM 07/09/23 06/09/25 06/07/25 History metformin 500 mg tablet,extended 500 mg PO BID 07/09/23 06/09/25 06/07/25 History release 24 hr levothyroxine 75 mcg tablet 75 mcg PO QAM 07/16/23 06/09/25 06/08/25 History aspirin 81 mg tablet,delayed 81 mg PO QAM 30 days #30 tabs 07/18/23 06/09/25 06/03/25 Rx release atorvastatin 40 mg tablet 40 mg PO DAILY 08/31/23 06/09/25 06/08/25 History Left knee medial accounting methods analyst brace #1 ea 08/29/24 05/20/25 Unknown Rx cholecalciferol (vitamin D3) 1,250 See Rx Instructions .Route 01/07/25 06/09/25 Unknown Rx mcg (50,000 unit) capsule .COMPLEX #14 caps oxycodone 5 mg tablet 5 mg PO Q6H PRN pain postop 7 days 06/09/25 Unknown Rx #28 tabs Allergies Allergy/AdvReac Type Severity Reaction Status Date / Time No Known Allergies Allergy Verified 06/09/25 06:13 Current Medications Generic Name Dose Route Start Last Admin Trade Name Freq PRN Reason Stop Dose Admin Chlorhexidine Gluconate 30 ml 06/09/25 11:00 06/09/25 11:42 Chlorhexidine Gluconate 0.12% Btl 473 Ml MUCOUS MEM 30 ml QID LUIS Administration Acetaminophen 1,000 mg in 100 mls @ 400 mls/hr 06/09/25 09:58 06/09/25 11:48 Acetaminophen IV 06/10/25 02:12 400 mls/hr Q8H LUIS Administration Cefazolin Sodium 2,000 mg/ 50 mls @ 100 mls/hr 06/09/25 09:58 06/09/25 11:47 Sodium Chloride IV 06/10/25 02:27 100 mls/hr Q8H LUIS Administration Protocol PFSH Acute PFSH: Medical History Diabetes mellitus Hypertension Rotator cuff arthropathy of right shoulder Family History Mother Stroke Brother Stroke Social History Smoking and tobacco/nicotine status: never used tobacco/nicotine Alcohol intake: never Substance/Drug Use: never Marital status: Vitals/I&O/Wt Last Vital Signs Temp 97.6 F 06/09/25 11:34 Pulse 69 06/09/25 11:34 Resp 17 06/09/25 11:34 BP 137/62 06/09/25 11:34 Pulse Ox 92 06/09/25 11:34 O2 Del Method Room Air 06/09/25 10:23 O2 Flow Rate 10 06/09/25 09:16 06/08/25 06/09/25 06/09/25 22:59 06:59 14:59 Intake Total 100 / 100 1300 / 1300 Output Total 475 / 475 Balance 100 / 100 825 / 825 Weight last 48 hrs Weight 73.1 kg Weight 69.4 kg Physical Exam Narrative: Accompanied by family. Const: COMMON NORMALS: patient oriented x3 and alert GENERAL APPEARANCE: cooperative ORIENTATION/CONSCIOUSNESS: Yes awake HENMT: COMMON NORMALS: oropharynx normal Neck/C-Spine: COMMON NORMALS: no JVD Resp: COMMON NORMALS: normal respiratory effort and clear to auscultation bilaterally AUSCULTATION: clear to auscultation bilaterally Cardio: COMMON NORMALS: no JVD, regular rhythm, S1 normal heart sound present, S2 normal heart sound present and No murmurs present (Cardio) RHYTHM: regular rhythm HEART SOUNDS: S1 normal heart sound present and S2 normal heart sound present GI: COMMON NORMALS: Normal to inspection, nondistended, normoactive bowel sounds present, Soft to palpation and non-tender PALPATION: Yes Soft to palpation Extremity: COMMON NORMALS: no joint enlargement and no pedal edema NARRATIVE EXTREMITY EXAM: LLE postop dressing. Left foot perfused. Moving her ankle/toes. Neuro: COMMON NORMALS: patient oriented x3 and moves all extremities SENSORIUM/ORIENTATION: Yes alert Skin: COMMON NORMALS: no rashes or lesions noted GENERAL SKIN EXAM: no rashes or lesions noted Urinary Catheter Management: Rachel: Cath Placed During This Visit: yes Urinary Catheter Date of Insertion: 06/09/25 Urinary Catheter Time of Insertion: 07:06 Data 06/09/25 06:30 06/09/25 06:20 A&P Assessment and plan 1. S/P total knee arthroplasty: She tells me underwent uneventful left TKA. She is doing well postoperatively. No trouble breathing breathing nausea or vomiting. He is starting to get some pain. Continue management per orthopedics. Reviewed vitals, CBC, BMP, operative note, knee x-ray, discussed with Ortho. Continue pain control, has acetaminophen scheduled, oxycodone as needed, Dilaudid as needed for severe breakthrough pain. She is awake and alert, maintain blood pressure, able to resume oral diet. Discontinue IV fluid. Repeat blood counts pending for tomorrow. Anticipated to start on Eliquis VTE prophylaxis per orthopedic surgery. Pending PT assessment. Tentative discharge plan is to return home tomorrow. 2. Diabetes mellitus: Discussed with her, normally manages diabetes with metformin at home. Hold metformin. Sliding scale insulin for now 3. Hypertension: Monitor blood pressures. Resume amlodipine and your restarting. Will adjust to cardiac diet. 4. Dyslipidemia: Continue statin Plan: Hypothyroidism: Continue levothyroxine PDMP PDMP Reviewed: Not Reviewed Consult Attestations Medical Necessity Statement: Continue postoperative care after left TKA. and High MDM includes amount and/or complexity of data reviewed/ordered [ previous or external records, resulted lab(s)/test(s), ordered lab(s)/test(s) and other healthcare professional discussion] and described risk of complication, morbidity or mortality of management as documented Diagnoses S/P total knee arthroplasty Z96.659 Diabetes mellitus E11.9 Hypertension I10 Dyslipidemia E78.5
[2025-06-09] MEDS: oxyCODONE 5 mg IR Tab/Cap PO ×2 (13:10→20:55)
[2025-06-09] MEDS: tranexamic acid 1,000 MG/100 ML PREMIX 600 MG IV (15:23)
[2025-06-09] MEDS: sennosides-docusate Tablet 2 TAB PO (17:08)
[2025-06-09] MEDS: mupirocin oint 22 gm 1 APPLIC NASAL (17:08)
[2025-06-09] MEDS: calcium carb-vit d 600mg/400unit 1 Tablet 1 EACH PO (17:09)
--- NOTE | 2025-06-09 18:55 | PM.CONSULT ---
Providers/Reason For Consult Reason for Consult*: Medical management Requesting Physician: Dr. Robert Hendricks Attending Physician: Robert Hendricks DO Primary Care Provider: Luca Sanon MD History of Present Illness History of Present Illness Francy Mcmullen is a 79 year old female with pmhx of CVA, syncope, HTN, dizziness, HLD, knee surgery, and DM presenting with complaint of scheduled knee surgery. Patient follows ortho and had uncomplicated left knee DJD. Stable with 5/10 pain managed with PO meds. Will admit to Hospitalist Service for medical management alongside Ortho as primary team. Full Code. Family at bedside. Review of Systems Narrative: NEG with below exceptions. Musc: Reports: extremity swelling, joint pain and joint stiffness Medications/Allergies Home Medications ?Medication ?Instructions ?Recorded ?Confirmed ?Last Taken ?Type amlodipine 10 mg tablet 10 mg PO QAM 07/18/22 06/09/25 06/08/25 History hydrochlorothiazide 25 mg tablet 25 mg PO QAM 07/18/22 06/09/25 06/08/25 History irbesartan 150 mg tablet 150 mg PO QAM 07/09/23 06/09/25 06/07/25 History metformin 500 mg tablet,extended 500 mg PO BID 07/09/23 06/09/25 06/07/25 History release 24 hr levothyroxine 75 mcg tablet 75 mcg PO QAM 07/16/23 06/09/25 06/08/25 History aspirin 81 mg tablet,delayed 81 mg PO QAM 30 days #30 tabs 07/18/23 06/09/25 06/03/25 Rx release atorvastatin 40 mg tablet 40 mg PO DAILY 08/31/23 06/09/25 06/08/25 History Left knee medial cad designer brace #1 ea 08/29/24 05/20/25 Unknown Rx cholecalciferol (vitamin D3) 1,250 See Rx Instructions .Route 01/07/25 06/09/25 Unknown Rx mcg (50,000 unit) capsule .COMPLEX #14 caps oxycodone 5 mg tablet 5 mg PO Q6H PRN pain postop 7 days 06/09/25 Unknown Rx #28 tabs Allergies Allergy/AdvReac Type Severity Reaction Status Date / Time No Known Allergies Allergy Verified 06/09/25 06:13 Current Medications Generic Name Dose Route Start Last Admin Trade Name Freq PRN Reason Stop Dose Admin Calcium Carbonate 1 each 06/09/25 17:00 06/09/25 17:09 Calcium Carb-Vit D 600mg/400unit 1 Tablet PO 1 each BID LUIS Administration Chlorhexidine Gluconate 30 ml 06/09/25 11:00 06/09/25 17:11 Chlorhexidine Gluconate 0.12% Btl 473 Ml MUCOUS MEM 30 ml QID LUIS Administration Acetaminophen 1,000 mg in 100 mls @ 400 mls/hr 06/09/25 09:58 06/09/25 18:51 Acetaminophen IV 06/10/25 02:12 Infused Q8H LUIS Infusion Cefazolin Sodium 2,000 mg/ 50 mls @ 100 mls/hr 06/09/25 09:58 06/09/25 18:51 Sodium Chloride IV 06/10/25 02:27 Infused Q8H LUIS Infusion Protocol Insulin Human Lispro 0 unit 06/09/25 18:00 06/09/25 18:35 Insulin Lispro 100 Unit/1 Ml SUBCUT 6 unit WM&BEDTIME LUIS Administration Protocol Mupirocin 1 applic 06/09/25 17:00 06/09/25 17:08 Mupirocin Oint 22 Gm NASAL 06/14/25 16:59 1 applic BID LUIS Administration Protocol Oxycodone HCl 5 mg 06/09/25 09:58 06/09/25 13:10 Oxycodone 5 Mg Ir Tab/Cap PO 5 mg Q4H PRN Administration MODERATE PAIN Polysaccharide Iron Complex 150 mg 06/09/25 18:00 06/09/25 17:09 Iron Polysaccharide Complex 150 Mg Capsule PO 150 mg BIDWM LUIS Administration Senna/Docusate Sodium 2 tab 06/09/25 17:00 06/09/25 17:08 Sennosides-Docusate Tablet PO 2 tab BID LUIS Administration PFSH Acute PFSH: Medical History Diabetes mellitus Hypertension Rotator cuff arthropathy of right shoulder Family History Mother Stroke Brother Stroke Social History Smoking and tobacco/nicotine status: never used tobacco/nicotine Alcohol intake: never Substance/Drug Use: never Marital status: Vitals/I&O/Wt Last Vital Signs Temp 97.2 F L 06/09/25 16:50 Pulse 64 06/09/25 16:50 Resp 17 06/09/25 16:50 BP 167/72 06/09/25 16:50 Pulse Ox 92 06/09/25 16:50 O2 Del Method Room Air 06/09/25 10:23 O2 Flow Rate 10 06/09/25 09:16 06/09/25 06/09/25 06/09/25 06:59 14:59 22:59 Intake Total 100 / 100 1640 / 1640 540 / 2180 Output Total 475 / 475 Balance 100 / 100 1165 / 1165 540 / 1705 Weight last 48 hrs Weight 73.1 kg Weight 69.4 kg Physical Exam Const: COMMON NORMALS: no acute distress and patient oriented x3 HENMT: COMMON NORMALS: normocephalic HEAD & SCALP: normocephalic Neck/C-Spine: COMMON NORMALS: full ROM Lymph: LYMPHATIC: no lymphadenopathy noted Chest: COMMONS NORMALS: normal inspection of the chest Resp: COMMON NORMALS: normal respiratory effort Cardio: COMMON NORMALS: regular rate and regular rhythm RATE: regular rate RHYTHM: regular rhythm GI: COMMON NORMALS: Normal to inspection, nondistended, normoactive bowel sounds present Neuro: COMMON NORMALS: patient oriented x3 Urinary Catheter Management: Rachel: Cath Placed During This Visit: yes Reason for Continuing Indwelling Catheter: Perioperative Use in Selected Surgeries Urinary Catheter Date of Insertion: 06/09/25 Urinary Catheter Time of Insertion: 07:06 Data 06/09/25 06:30 06/09/25 06:20 A&P PDMP PDMP Reviewed: Not Reviewed Consult Attestations Time Spent in Patient Care: Greater than 35 minutes Coding Level of Care Code 56322
[2025-06-10] VITALS (9 sets, daily range): BP systolic 133–176; BP diastolic 53–73; PULSE 50–61; RESP 16–18; TEMP 36.6–37.3; O2SAT 92–96
[2025-06-10] MEDS: oxyCODONE 5 mg IR Tab/Cap PO ×4 (01:52→15:02)
[2025-06-10] MEDS: ceFAZolin 2,000 MG in sodium chloride 0.9% (plus) 50 ML 100 MG IV (01:52)
[2025-06-10] MEDS: acetaminophen 1,000 MG/100 ML PIGGYBACK 400 MG IV (01:53)
[2025-06-10] MEDS: multivitamin therapeutic Tablet 1 TAB PO (04:16)
[2025-06-10] MEDS: calcium carb-vit d 600mg/400unit 1 Tablet 1 EACH PO (04:17)
[2025-06-10] MEDS: chlorhexidine gluconate 0.12% Btl 473 mL 30 ML MUCOUS MEM (04:17)
[2025-06-10] MEDS: mupirocin oint 22 gm 1 APPLIC NASAL (04:17)
[2025-06-10] MEDS: sennosides-docusate Tablet 2 TAB PO (04:17)
[2025-06-10 04:56] LABS: Hematocrit 30.8 % (36-47); Hemoglobin 10.30 g/dL (11.27-16.99); Mean Corpuscular HGB Conc 33.4 g/dL (30-55); Mean Corpuscular Hemoglobin 30.6 pg (27-33); Mean Corpuscular Volume 91.4 fl (85-98); Nucleated Red Blood Cells % 0 %; Platelet Count 187 10^3/cmm (157-399); Red Blood Count 3.37 10^6/uL (3.85-5.65); White Blood Count 9.55 10^3/uL (3.29-11.43)
[2025-06-10 05:17] LABS: Anion Gap 14.8 (5-19); Blood Urea Nitrogen 15 mg/dL (8-23); Calcium 8.8 mg/dL (8.5-10.5); Carbon Dioxide 26 mmol/L (22-29); Chloride 106 mmol/L (98-107); Creatinine Clr Calc Pharmacy 50.4286; Glucose 117 mg/dL (65-115); Osmolality Calculated 298 mOsm/kg (285-295); Potassium 3.8 mmol/L (3.5-5.1); Sodium 143 mmol/L (136-145)
[2025-06-10] MEDS: APIXABAN 2.5 MG TABLET PO (08:40)
--- NOTE | 2025-06-10 10:43 | PM.CONSULT ---
Providers/Reason For Consult Consulting Physician/Specialty*: Hospitalist Reason for Consult*: Medical Management Requesting Physician: Dr. Robert Hendricks Attending Physician: Robert Hendricks DO Primary Care Provider: Luca Sanon MD History of Present Illness History of Present Illness Francy Mcmullen is a 79 year old female with pmhx of knee surgery, CVA, syncope, DM, and HTN presenting with complaints of scheduled knee surgery. Patient underwent uncomplicated left TKA. Postoperatively, she has ambulated mutliple times including up and down stairs. She can go to the bathroom unassisted. Admits left knee pain at a consistent /10 that requires PO pain management q4h. Denies any other modifying factors. Family at bedside. Review of Systems General: Reports: 10 or more systems reviewed and unremarkable except in HPI and below Medications/Allergies Home Medications ?Medication ?Instructions ?Recorded ?Confirmed ?Last Taken ?Type amlodipine 10 mg tablet 10 mg PO QAM 07/18/22 06/09/25 06/08/25 History hydrochlorothiazide 25 mg tablet 25 mg PO QAM 07/18/22 06/09/25 06/08/25 History irbesartan 150 mg tablet 150 mg PO QAM 07/09/23 06/09/25 06/07/25 History metformin 500 mg tablet,extended 500 mg PO BID 07/09/23 06/09/25 06/07/25 History release 24 hr levothyroxine 75 mcg tablet 75 mcg PO QAM 07/16/23 06/09/25 06/08/25 History aspirin 81 mg tablet,delayed 81 mg PO QAM 30 days #30 tabs 07/18/23 06/09/25 06/03/25 Rx release atorvastatin 40 mg tablet 40 mg PO DAILY 08/31/23 06/09/25 06/08/25 History Left knee medial river driver brace #1 ea 08/29/24 06/10/25 Unknown Rx cholecalciferol (vitamin D3) 1,250 See Rx Instructions .Route 01/07/25 06/09/25 Unknown Rx mcg (50,000 unit) capsule .COMPLEX #14 caps oxycodone 5 mg tablet 5 mg PO Q6H PRN pain postop 7 days 06/09/25 Unknown Rx #28 tabs Allergies Allergy/AdvReac Type Severity Reaction Status Date / Time No Known Allergies Allergy Verified 06/09/25 06:13 Current Medications Generic Name Dose Route Start Last Admin Trade Name Rinku PRN Reason Stop Dose Admin Amlodipine Besylate 10 mg 06/10/25 05:00 06/10/25 04:17 Amlodipine 10 Mg Tablet PO 10 mg QAM LUIS Administration Apixaban 2.5 mg 06/10/25 09:00 06/10/25 08:40 Apixaban 2.5 Mg Tablet PO 2.5 mg BID@0900,2100 [facility] Administration Aspirin 81 mg 06/10/25 05:00 06/10/25 04:16 Aspirin 81 Mg Ec Tablet PO 81 mg QAM [facility] Administration Atorvastatin Calcium 40 mg 06/10/25 05:00 06/10/25 04:17 Atorvastatin 40 Mg Tablet PO 40 mg DAILY LUIS Administration Calcium Carbonate 1 each 06/09/25 17:00 06/10/25 04:17 Calcium Carb-Vit D 600mg/400unit 1 Tablet PO 1 each BID LUIS Administration Chlorhexidine Gluconate 30 ml 06/09/25 11:00 06/10/25 04:17 Chlorhexidine Gluconate 0.12% Btl 473 Ml MUCOUS MEM 30 ml QID [facility] Administration Insulin Human Lispro 0 unit 06/09/25 18:00 06/10/25 07:21 Insulin Lispro 100 Unit/1 Ml SUBCUT Not Given WM&BEDTIME [facility] Protocol Levothyroxine Sodium 75 mcg 06/10/25 05:00 06/10/25 04:16 Levothyroxine 75 Mcg Tablet PO 75 mcg QAM [facility] Administration Losartan Potassium 50 mg 06/10/25 05:00 06/10/25 04:17 Losartan 50 Mg Tablet PO 50 mg QAM [facility] Administration Multivitamins Therapeutic 1 tab 06/10/25 05:00 06/10/25 04:16 Multivitamin Therapeutic Tablet PO 1 tab DAILY [facility] Administration Mupirocin 1 applic 06/09/25 17:00 06/10/25 04:17 Mupirocin Oint 22 Gm NASAL 06/14/25 16:59 1 applic BID [facility] Administration Protocol Oxycodone HCl 5 mg 06/09/25 09:58 06/10/25 06:48 Oxycodone 5 Mg Ir Tab/Cap PO 5 mg Q4H PRN Administration MODERATE PAIN Polysaccharide Iron Complex 150 mg 06/09/25 18:00 06/10/25 08:40 Iron Polysaccharide Complex 150 Mg Capsule PO 150 mg BIDWM LUIS Administration Senna/Docusate Sodium 2 tab 06/09/25 17:00 06/10/25 04:17 Sennosides-Docusate Tablet PO 2 tab BID LUIS Administration PFSH Acute PFSH: Medical History Diabetes mellitus Hypertension Rotator cuff arthropathy of right shoulder Family History Mother Stroke Brother Stroke Social History Smoking and tobacco/nicotine status: never used tobacco/nicotine Alcohol intake: never Substance/Drug Use: never Marital status: Vitals/I&O/Wt Last Vital Signs Temp 98.0 F 06/10/25 07:30 Pulse 51 L 06/10/25 07:30 Resp 18 06/10/25 07:30 BP 176/53 06/10/25 07:30 Pulse Ox 96 06/10/25 07:30 O2 Del Method Room Air 06/10/25 07:30 O2 Flow Rate 10 06/09/25 09:16 06/09/25 06/10/25 06/10/25 22:59 06:59 14:59 Intake Total 540 / 2180 150 / 2330 240 / 240 Output Total 800 / 1275 350 / 1625 Balance -260 / 905 -200 / 705 240 / 240 Weight last 48 hrs Weight 72.575 kg Weight 73.1 kg Weight 69.4 kg Physical Exam Const: COMMON NORMALS: no acute distress, patient oriented x3, healthy appearing, alert and well nourished HENMT: COMMON NORMALS: normocephalic and atraumatic HEAD & SCALP: normocephalic and atraumatic Eye: COMMON NORMALS: Equal, round and reactive pupils present, EOMs intact bilaterally, conjunctivae normal and no scleral icterus CONJUNCTIVA: Yes conjunctivae normal PUPIL: Yes Equal, round and reactive pupils present Neck/C-Spine: COMMON NORMALS: full ROM, no lymphadenopathy and no JVD Lymph: LYMPHATIC: no lymphadenopathy noted Chest: COMMONS NORMALS: normal inspection of the chest Resp: COMMON NORMALS: normal respiratory effort Cardio: COMMON NORMALS: no JVD, regular rate and regular rhythm RATE: regular rate RHYTHM: regular rhythm GI: COMMON NORMALS: Normal to inspection, nondistended, normoactive bowel sounds present : COMMON NORMALS: Yes no CVA tenderness BLADDER/KIDNEY EXAM: Yes no CVA tenderness Back/Pelvis: COMMON NORMALS: no CVA tenderness Extremity: LEFT LOWER EXTREMITY: Yes knee joint (pain, swelling, tenderness) Neuro: COMMON NORMALS: patient oriented x3 SENSORIUM/ORIENTATION: Yes alert Psych: COMMON NORMALS: mental status grossly normal, cooperative, speech normal and activity/motor behavior normal SPEECH: Yes normal speech Skin: NARRATIVE SKIN EXAM: Post surgical left knee Urinary Catheter Management: Rachel: Cath Placed During This Visit: yes, but has since been removed by the nurse Reason for Continuing Indwelling Catheter: Decision to DC Catheter Urinary Catheter Date of Insertion: 06/09/25 Urinary Catheter Time of Insertion: 07:06 Date Urinary Catheter Removed: 06/10/25 Time Urinary Catheter Discontinued: 06:44 Data 06/10/25 04:10 06/10/25 04:10 A&P Assessment and plan 1. S/P total knee arthroplasty: Uncomplicated left TKA. Pain 5/10 managed PO. Continue management per orthopedics. Eliquis VTE prophylaxis. Hospitalist Service signing off with recommendation to follow up with Ortho outpatient. 2. Diabetes mellitus: Discussed with her, normally manages diabetes with metformin at home. Hold metformin. Sliding scale insulin for now 3. Hypertension: Monitor blood pressures. Resume amlodipine and your restarting. Will adjust to cardiac diet. 4. Dyslipidemia: Continue statin Plan: Hypothyroidism: Continue levothyroxine PDMP PDMP Reviewed: Not Reviewed Diagnoses S/P total knee arthroplasty Z96.659 Diabetes mellitus E11.9 Hypertension I10 Dyslipidemia E78.5
--- NOTE | 2025-06-10 13:36 | PM.DCS ---
Discharge Providers Date of Admission: 06/10/25 08:51 Date of Discharge: June 10, 2025 Attending Provider at Admission: Robert Hendricks DO Attending Provider at Discharge: Robert Hendricks DO Consults: Hospitalist?Dr. Chamorro Primary Care Provider: Luca Sanon MD Diagnoses at Discharge Discharge Diagnosis 1. S/P total knee arthroplasty: 2. Type 2 diabetes mellitus with other circulatory complication, without long-term current use of insulin: 3. Primary hypertension: 4. Dyslipidemia: Reason for Visit Reason for Visit: M17.12 Brief History: Status post left total knee arthroplasty?[facility] robotic assisted Hospital Course Hospital Course Patient presented to the preoperative holding area with plan for left total knee arthroplasty after patient has been worked up in the outpatient setting for failed conservative treatment of left knee degenerative joint disease. Once cleared by anesthesia for surgery patient subsequently was taken back to the operative suite underwent anesthesia per anesthesia department and then subsequently underwent a left total knee arthroplasty. Procedure was performed without any complications patient was taken to PACU in stable condition patient recovered well in PACU and then was admitted to the floor postoperatively internal medicine was consulted and on board for medical management and assistance with care. Patient received appropriate PT/OT, postoperative antibiotics, postoperative TXA, pain control, postoperative DVT prophylaxis. Elevation and ice. Patient encouraged for knee range of motion allowed weightbearing as tolerated to the operative lower extremity. Dressing was changed as needed, labs were monitored daily. Patient recovered well postoperatively and worked well and progressed well with therapy. It was determined on postoperative day 1 the patient was stable for discharge from an orthopedic standpoint and medicine. Patient was comfortable with discharge and plan was discharged home. Patient received appropriate discharge instructions as well as pain medication and DVT prophylaxis postoperatively. Given appropriate instructions for dressing management. Patient will follow-up with Dr. Hendricks/orthopedics in the office in 2 weeks. All questions answered. Understand if there is any issues questions or concerns and contact the office. Physical Exam Narrative: Left knee examination: Dressing on in place, clean dry and intact. No evidence of saturation. Patient has normal postoperative swelling and tenderness to palpation to the knee. Compartments are soft compressible,'s calf soft and nontender. Sensations intact to light touch distally. Distal pulses are palpable. Patient is able to wiggle toes as well as plantarflex and dorsiflex ankle. Urinary Catheter Management: Rachel: Cath Placed During This Visit: yes, but has since been removed by the nurse Reason for Continuing Indwelling Catheter: Decision to DC Catheter Urinary Catheter Date of Insertion: 06/09/25 Urinary Catheter Time of Insertion: 07:06 Date Urinary Catheter Removed: 06/10/25 Time Urinary Catheter Discontinued: 06:44 Discharge Data Studies Completed and Pending Completed Studies During Hospitalization Category Date Time Status XR knee LT 1-2V [id number] Routine Exams 06/09/25 09:20 Completed Pending at discharge Category Date Time Status Basic Metabolic Panel AM LABS Lab 06/11/25 04:00 Ordered Basic Metabolic Panel AM LABS Lab 06/12/25 04:00 Ordered Complete Blood Count w/Auto AM LABS Lab 06/11/25 04:00 Ordered Complete Blood Count w/Auto AM LABS Lab 06/12/25 04:00 Ordered Radiology Impressions Knee X-Ray 06/09/25 09:20 IMPRESSION: 1. Total knee prosthesis in excellent position. Laboratory Results WBC 9.55 10^3/uL (3.29-11.43) 06/10/25 04:10 RBC 3.37 10^6/uL (3.85-5.65) L 06/10/25 04:10 Hgb 10.30 g/dL (11.27-16.99) L 06/10/25 04:10 Hct 30.8 % (36-47) L 06/10/25 04:10 MCV 91.4 fl (85-98) 06/10/25 04:10 MCH 30.6 pg (27-33) 06/10/25 04:10 MCHC 33.4 g/dL (30-55) 06/10/25 04:10 RDW 13.0 % (12.1-15.1) 06/10/25 04:10 Plt Count 187 10^3/cmm (157-399) 06/10/25 04:10 MPV 10.3 fL (7.4-10.4) 06/10/25 04:10 Neut % (Auto) 78.4 % 06/10/25 04:10 Lymph % (Auto) 11.3 % 06/10/25 04:10 Braxton % (Auto) 9.8 % 06/10/25 04:10 Eos % (Auto) 0.1 % 06/10/25 04:10 Baso % (Auto) 0.2 % 06/10/25 04:10 Neut # (Auto) 7.48 10^3/uL (1.8-7.7) 06/10/25 04:10 Lymph # (Auto) 1.1 10^3/uL (0.8-4.8) 06/10/25 04:10 Braxton # (Auto) 0.9 10^3/uL (0.2-0.9) 06/10/25 04:10 Eos # (Auto) 0.0 10^3/uL (0.0-0.8) 06/10/25 04:10 Baso # (Auto) 0.0 10^3/uL (0.0-0.1) 06/10/25 04:10 Nucleated RBC % (auto) 0 % 06/10/25 04:10 Nucleated RBCs # 0.0 /100WBC 06/10/25 04:10 Sodium 143 mmol/L (136-145) 06/10/25 04:10 Potassium 3.8 mmol/L (3.5-5.1) 06/10/25 04:10 Chloride 106 mmol/L (98-107) 06/10/25 04:10 Carbon Dioxide 26 mmol/L (22-29) 06/10/25 04:10 Anion Gap 14.8 (5-19) 06/10/25 04:10 BUN 15 mg/dL (8-23) 06/10/25 04:10 Creatinine 0.6 mg/dL (0.5-0.9) 06/10/25 04:10 GFR Calculation Not Reportable 06/10/25 04:10 Glucose 117 mg/dL (65-115) H 06/10/25 04:10 POC Glucose 125 mg/dL (70-110) H 06/10/25 11:11 Calculated Osmolality 298 mOsm/kg (285-295) H 06/10/25 04:10 Calcium 8.8 mg/dL (8.5-10.5) 06/10/25 04:10 Blood Type A Positive 06/09/25 06:20 Rho(D) Type Rh positive 06/09/25 06:20 Antibody Screen Negative 06/09/25 06:20 Vitals Last Vital Signs Temp 97.9 F 06/10/25 11:41 Pulse 50 L 06/10/25 11:41 Resp 18 06/10/25 11:41 BP 152/73 06/10/25 11:41 Pulse Ox 95 06/10/25 11:41 O2 Del Method Room Air 06/10/25 11:41 O2 Flow Rate 10 06/09/25 09:16 Discharge Plan Discharge Patient Disposition: Home Health Service Condition: Stable Prescriptions: New cefadroxil 500 mg capsule 500 mg PO BID 7 Days Qty: 14 0RF oxycodone 5 mg tablet 5 mg PO Q6H PRN (Reason: pain postop) 7 Days Qty: 28 0RF calcium carbonate-vitamin D3 [Calcium 600 + D(3)] 600 mg-10 mcg (400 unit) tablet 1 tab PO DAILY 30 Days Qty: 30 0RF Eliquis 2.5 mg tablet 2.5 mg PO BID 14 Days Qty: 28 0RF Continued amlodipine 10 mg tablet 10 mg PO QAM hydrochlorothiazide 25 mg tablet 25 mg PO QAM atorvastatin 40 mg tablet 40 mg PO DAILY (DME) Left knee medial concrete bucket unloader brace See Rx Instructions .Route .MEDSUPPLY Qty: 1 0RF Rx Instructions: As directed cholecalciferol (vitamin D3) 1,250 mcg (50,000 unit) capsule See Rx Instructions .ROUTE .COMPLEX Qty: 14 5RF Dose Instruction: TAKE ONE CAPSULE BY MOUTH WEEKLY Rx Instructions: TAKE ONE CAPSULE BY MOUTH WEEKLY irbesartan 150 mg tablet 150 mg PO QAM metformin 500 mg tablet extended release 24 hr 500 mg PO BID levothyroxine 75 mcg tablet 75 mcg PO QAM aspirin 81 mg Tablet,Delayed Release (Dr/Ec) 81 mg PO QAM 30 Days Qty: 30 0RF Prop Cutter OK for DC: Hospitalist Discharge Order = DC NOW: Discharge Order (Routine); Ordered 06/10/25 Ordered By: Robert Hendricks Referrals: [facility] [Outside] Robert Hendricks DO [Physician, Orthopedics] - 06/25/25 9:30 am Luca Sanon MD [Primary Care Provider, Family Practice] - 06/19/25 8:00 am Discharge Diet: Regular Discharge Activity: Limit activity as instructed and Use walker/crutches as instructed Patient Instructions: Cefadroxil (By mouth), Oxycodone, Rapid Release (By mouth), Apixaban (By mouth), Acute Wound Care (DC), Total Knee Replacement (DC), Opioid Safety, Post Anesthesia Care, Patient Portal & Camilla Instructions Activity Restrictions/Additional Instructions: Hospitalist discharge instructions Please follow up with ortho outpatient in two weeks. Orthopedic discharge instructions Ryder Dressing--Keep dressing on and dry. After 3 days you can remove some of the dressing and shower. disconnect battery pack when showering. Ryder dressing will stay on until follow up appt in 2 weeks. The battery pack for the dressing will at 5-7 days. Battery pack can be removed and discarded once batteries . Patient may weight-bear as tolerate to the operative extremity Utilize walker as needed Encourage knee range of motion Ice and elevate as needed for pain and swelling (icing every 20 minutes every couple hours) Mobilize is much as patient can tolerate. Sure to mobilize at least once every 2 hours. Take pain medication as prescribed Take antinausea medication as needed Take antibiotic as prescribed for infection prevention Supplement with calcium vitamin D for bone health and healing Pain medication can cause constipation. take [id number] stool softeners and or MiraLAX. Take prescribed Eliquis twice daily for the next 14 days for blood clot prevention May supplement for pain with Tylenol [id number] as needed(1000 mg every 8 hours-do not exceed more than 3000mg in 24-hour period) No baths or soaks Follow-up in the orthopedic office in 2 weeks Contact the office for any questions or concerns Discharge Attestations Time Spent in Discharge Care*: less than 30 min Quality Metrics Clinical Quality Measures [ No reported AMI, CVA or VTE this stay] Coding Level of Care Code Acute Code for Chg Fwd Diagnoses S/P total knee arthroplasty Z96.659 Type 2 diabetes mellitus with other circulatory complication, without long-term current use of insulin E11.59 Diabetes mellitus complication detail: with other circulatory complications Diabetes mellitus complication status: with circulatory complication Diabetes mellitus ocean transportation intermediary insulin use: without jail use Diabetes mellitus type: type 2 Primary hypertension I10 Hypertension type: primary hypertension Dyslipidemia E78.5
== END 2025-06-10 15:55 | disposition home health service (06) ==
LOC: OR 08:51 → MEDSURG 08:51
PROVIDERS: Physician Assistant; Admitting Provider Student in an Organized Health Care Education/Training Program; PCP Family Medicine; Visit Provider Student in an Organized Health Care Education/Training Program
PROC: 8E0Y0CZ Robotic Assisted Procedure of Lower Extremity, Open Approach (ICD-10-PCS; CPT 27447; principal; 2025-06-09 07:00)
DX: M17.12 Unilateral primary osteoarthritis, left knee (principal); Z79.82 Long term (current) use of aspirin; Z79.84 Long term (current) use of oral hypoglycemic drugs; E11.9 Type 2 diabetes mellitus without complications; I10 Essential (primary) hypertension; E78.5 Hyperlipidemia, unspecified; E11.59 Type 2 diabetes mellitus with other circulatory complications; Z86.73 Personal history of transient ischemic attack (TIA), and cerebral infarction without residual deficits; Z82.3 Family history of stroke; Z79.891 Long term (current) use of opiate analgesic; E07.9 Disorder of thyroid, unspecified
CPT/HCPCS: 27447; 20985; 36415; 36416; 51702; 73560; 80048; 82962; 85025; 86850; 86900; 96372; 97110; 97116; 97161; 97165; 97530; A4216; C1713; C1776; G0378; J0131; J0169; J0690; J1100; J1815; J1885; J2371; J2405; J2704; J2795; J3373; J7030; J9999; L8699

== ENCOUNTER → 2025-06-25 09:10 | Outpatient (BNVA) | payer MEDICARE, SELFPAY | PROVIDERS: PCP Family Medicine; Visit Provider Physician Assistant | DX: Z98.890 Other specified postprocedural states (principal); Z96.659 Presence of unspecified artificial knee joint | CPT/HCPCS: 73560; 73565; 99024 ==